=== PATIENT | female | born 1940 | race Caucasian/White ===

== ENCOUNTER 2018-02-24 11:48 | Emergency (ER) | payer MEDICARE, OTHER ==
[~2018-02-24] VITALS: Ht 160 cm; Wt 59.0 kg
[~2018-02-24 11:48] MED LIST: ACYC5TO15G; CHOL10002 PO; CONEST.625; DIVA500EC; DIVA500ER; DOC250 PO; DOCSEN; DOCSEN PO; DOCU100; DOCU100 PO; ESTNORT PO; ESTR1; ESTR2 PO; ESTRADIOL; ESTRTP; IMIP25; IMIP25 PO; IMIP50 PO; LAVAP17G PO; LAVAP4L PO; LEVSOD100; LEVSOD125; LEVSOD150; LEVSOD150 PO; LORA.5 PO; MAGCIT300 PO; MECL25; MECL25 PO; METO5A; METO5A PO; OMEP20ER; OMEP20ER PO; OXYB5; PROM25 PO; PSYL5.85P PO; RANI150; SELENIUM; SELENIUM 200 MG; SELENIUM PO; TOLT4; TOLT4 PO; ZINC15 PO; ZINC50TA2
[2018-02-24 12:41] LABS: Source, Urine Catheter
[2018-02-24 12:49] LABS: Alanine Aminotransfer (ALT/SGP 25 U/L (12-78); Albumin, Blood 3.5 g/dL (3.4-5.0); Alk Phos 77 U/L (50-136); Anion Gap 5 mmol/L (6-16); Aspartate Aminotrans (AST/SGOT 25 U/L (12-37); Bilirubin, Total 0.5 mg/dL (0.1-1.0); Blood Urea Nitrogen 11 mg/dL (8-24); CO2, Blood 29 mmol/L (21-32); Calcium, Blood 8.5 mg/dL (8.5-10.1); Chloride, Blood 109 mmol/L (98-108); Creatinine, Blood 0.73 mg/dL (0.40-1.00); Globulin, Blood 3.5 g/dL (2.2-4.0); Glomerular Filtration Rate >60 (60-); Glucose, Blood 85 mg/dL (70-99); Potassium, Blood 5.1 mmol/L (3.5-5.5); Sodium, Blood 143 mmol/L (136-145); Troponin I <0.015 ng/mL (0.000-0.040)
[2018-02-24 12:52] LABS: Ethanol (Alcohol), Blood, Med <3 mg/dL
[2018-02-24 12:58] LABS: Bilirubin, Urine Neg (Neg); Blood, Urine 1+ (Neg); Glucose Qualitative, Urine Neg (Neg); Ketones, Urine Neg (Neg); Leukocyte Esterase, Urine Neg (Neg); Nitrite, Urine Neg (Neg); Protein, Urine Neg (Neg); Urobilinogen, Urine NORM (Normal)
[2018-02-24] MEDS ORDERED: CLON.1 PO (13:02)
[2018-02-24 13:15] LABS: Appearance, Urine Clear (Clear); Color, Urine Yellow (P-Yellow)
[2018-02-24 13:17] LABS: U Amphetamine Screen Not Detected; U Barbituate Screen Not Detected; U Benzodiazapine Screen Not Detected; U Buprenorphine Screen Not Detected; U Cannabinoids Screen Not Detected; U Cocaine Screen Not Detected; U Methadone Screen Not Detected; U Methamphetamine Screen Not Detected; U Opiates Screen Not Detected; U Oxycodone Screen Not Detected; U Phencyclidine Screen Not Detected; U Propoxyphene Screen Not Detected
[2018-02-24 13:19] LABS: Bacteria Many /hpf; Squamous Epithelial Cells Few /hpf (Few); White Blood Cells, Urine Not Seen /hpf (0-5)
== END 2018-02-24 14:33 | disposition home or self-care (01) ==
LOC: ER 11:48
PROVIDERS: Emergency Medicine
DX: S16.1XXA Strain of muscle, fascia and tendon at neck level, initial encounter (principal); R55 Syncope and collapse; T42.4X5A Adverse effect of benzodiazepines, initial encounter; F31.9 Bipolar disorder, unspecified; E11.9 Type 2 diabetes mellitus without complications; I25.10 Atherosclerotic heart disease of native coronary artery without angina pectoris; E03.9 Hypothyroidism, unspecified; Z88.0 Allergy status to penicillin; Z88.2 Allergy status to sulfonamides; Z88.6 Allergy status to analgesic agent; Z88.1 Allergy status to other antibiotic agents; Z88.8 Allergy status to other drugs, medicaments and biological substances; Z79.899 Other long term (current) drug therapy; W18.30XA Fall on same level, unspecified, initial encounter
CPT/HCPCS: 70450; 72125; 80053; 81001; 84484; 93005; 93010; 96360; 99285-25; G0480; J7030

== ENCOUNTER 2018-04-07 12:24 | Observation (INO) | payer MEDICARE, OTHER ==
[~2018-04-07] VITALS: Ht 160 cm; Wt 59.0 kg
[~2018-04-07 12:24] MED LIST changes: +CLON.1 PO
[2018-04-07] MEDS ORDERED: B COMPLEX WITH1 EACH PO (12:48)
[2018-04-07] MEDS ORDERED: ACET325 PO (12:49)
[2018-04-07] MEDS ORDERED: BENZ100A PO (12:49)
[2018-04-07] MEDS ORDERED: SIMV10 PO (12:50)
[2018-04-07] MEDS ORDERED: NITR.4SL SL (12:51)
[2018-04-07] MEDS ORDERED: LAMO25 PO (12:55)
[2018-04-07] MEDS ORDERED: Acidophilus La100 GM (12:56)
[2018-04-07] MEDS ORDERED: ALLERGY RELIE15.8 ML (12:57)
[2018-04-07] MEDS ORDERED: Cranberry500 MG PO (12:58)
[2018-04-07] MEDS ORDERED: DIPH50 PO (12:58)
[2018-04-07 13:54] LABS: BASOPHILS ABSOLUTE AUTO 0.04 K/mm3 (0.00-0.23); BASOPHILS PERCENT AUTO 1 % (0-2); EOSINOPHILS ABSOLUTE AUTO 0.13 K/mm3 (0.00-0.68); EOSINOPHILS PERCENT AUTO 2 % (0-6); Hematocrit 37.6 % (33.0-51.0); Hemoglobin 12.4 g/dL (11.5-16.0); IMMATURE GRAN ABSOLUTE AUTO 0.02 K/mm3 (0.00-0.10); IMMATURE GRAN PERCENT AUTO 0 % (0-1); LYMPHOCYTES ABSOLUTE AUTO 1.74 K/mm3 (0.84-5.20); LYMPHOCYTES PERCENT AUTO 25 % (21-46); MONOCYTES ABSOLUTE AUTO 0.54 K/mm3 (0.16-1.47); MONOCYTES PERCENT AUTO 8 % (4-13); Mean Corpuscular HGB 29.9 pg (26.0-34.0); Mean Corpuscular Volume 91 fL (80-100); Mean Platelet Volume 9.5 fL (9.1-12.4); NEUTROPHILS ABSOLUTE AUTO 4.57 K/mm3 (1.96-9.15); NEUTROPHILS PERCENT AUTO 65 % (41-73); Platelet Count 481 K/mm3 (150-400); RDW Coefficient Variation 13.2 % (11.7-14.2); RDW Standard Deviation 44.1 fL (35.1-46.3); Red Blood Cell Count 4.15 M/mm3 (3.80-5.20); White Blood Cell Count 7.04 K/mm3 (4.00-11.30)
[2018-04-07 13:58] LABS: Source, Urine Clean Catch
[2018-04-07 14:04] LABS: Appearance, Urine Clear (Clear); Bilirubin, Urine Neg (Neg); Blood, Urine 1+ (Neg); Color, Urine Yellow (P-Yellow); Glucose Qualitative, Urine Neg (Neg); Ketones, Urine Neg (Neg); Leukocyte Esterase, Urine Neg (Neg); Nitrite, Urine Neg (Neg); Protein, Urine Neg (Neg); Urobilinogen, Urine NORM (Normal)
[2018-04-07 14:18] LABS: Acetaminophen, Random <2.0 ug/mL (10.0-30.0); Alanine Aminotransfer (ALT/SGP 24 U/L (12-78); Albumin, Blood 3.5 g/dL (3.4-5.0); Albumin/Globulin Ratio 0.9 (0.8-1.8); Alk Phos 98 U/L (50-136); Anion Gap 3 mmol/L (6-16); Aspartate Aminotrans (AST/SGOT 21 U/L (12-37); Bilirubin, Total 0.2 mg/dL (0.1-1.0); Blood Urea Nitrogen 10 mg/dL (8-24); CO2, Blood 30 mmol/L (21-32); Calcium, Blood 8.6 mg/dL (8.5-10.1); Chloride, Blood 106 mmol/L (98-108); Creatinine, Blood 0.71 mg/dL (0.40-1.00); Ethanol (Alcohol), Blood, Med <3 mg/dL; Globulin, Blood 3.8 g/dL (2.2-4.0); Glomerular Filtration Rate >60 (60-); Glucose, Blood 83 mg/dL (70-99); Potassium, Blood 4.9 mmol/L (3.5-5.5); Salicylate <1.7 mg/dL (2.8-20.0); Sodium, Blood 139 mmol/L (136-145); Total Protein, Blood 7.3 g/dL (6.4-8.2)
[2018-04-07 14:19] LABS: U Amphetamine Screen Not Detected; U Barbituate Screen Not Detected; U Benzodiazapine Screen Not Detected; U Buprenorphine Screen Not Detected; U Cannabinoids Screen Not Detected; U Cocaine Screen Not Detected; U Methadone Screen Not Detected; U Methamphetamine Screen Not Detected; U Opiates Screen Not Detected; U Oxycodone Screen Not Detected; U Phencyclidine Screen Not Detected; U Propoxyphene Screen Not Detected
[2018-04-07 14:20] LABS: Bacteria Few /hpf; Red Blood Cells, Urine 0-2 /hpf (0-2); Squamous Epithelial Cells Not Seen /hpf (Few); White Blood Cells, Urine 0-2 /hpf (0-5)
[2018-04-07 14:22] LABS: Thyroid Stimulating Hormone 0.828 uIU/mL (0.360-4.800)
[2018-04-08 23:13] LABS: BASOPHILS ABSOLUTE AUTO 0.05 K/mm3 (0.00-0.23); BASOPHILS PERCENT AUTO 1 % (0-2); EOSINOPHILS ABSOLUTE AUTO 0.23 K/mm3 (0.00-0.68); EOSINOPHILS PERCENT AUTO 3 % (0-6); Hematocrit 36.6 % (33.0-51.0); IMMATURE GRAN ABSOLUTE AUTO 0.02 K/mm3 (0.00-0.10); IMMATURE GRAN PERCENT AUTO 0 % (0-1); LYMPHOCYTES ABSOLUTE AUTO 2.16 K/mm3 (0.84-5.20); LYMPHOCYTES PERCENT AUTO 27 % (21-46); MONOCYTES ABSOLUTE AUTO 0.78 K/mm3 (0.16-1.47); MONOCYTES PERCENT AUTO 10 % (4-13); Mean Corpuscular HGB 29.6 pg (26.0-34.0); Mean Corpuscular HGB Conc 32.8 g/dL (31.5-36.5); Mean Corpuscular Volume 90 fL (80-100); NEUTROPHILS ABSOLUTE AUTO 4.76 K/mm3 (1.96-9.15); NEUTROPHILS PERCENT AUTO 59 % (41-73); Platelet Count 435 K/mm3 (150-400); RDW Coefficient Variation 13.2 % (11.7-14.2); RDW Standard Deviation 43.7 fL (35.1-46.3); Red Blood Cell Count 4.05 M/mm3 (3.80-5.20)
[2018-04-08 23:33] LABS: Alanine Aminotransfer (ALT/SGP 26 U/L (12-78); Albumin, Blood 3.4 g/dL (3.4-5.0); Albumin/Globulin Ratio 0.9 (0.8-1.8); Alk Phos 89 U/L (50-136); Anion Gap 6 mmol/L (6-16); Aspartate Aminotrans (AST/SGOT 28 U/L (12-37); Bilirubin, Total 0.3 mg/dL (0.1-1.0); Blood Urea Nitrogen 14 mg/dL (8-24); Bun/Creatinine Ratio 15.1 (12.0-20.0); CO2, Blood 28 mmol/L (21-32); Calcium, Blood 8.5 mg/dL (8.5-10.1); Chloride, Blood 104 mmol/L (98-108); Creatinine, Blood 0.93 mg/dL (0.40-1.00); Globulin, Blood 3.7 g/dL (2.2-4.0); Glomerular Filtration Rate >60 (60-); Glucose, Blood 119 mg/dL (70-99); Magnesium, Blood 2.1 mg/dL (1.6-2.4); Potassium, Blood 4.8 mmol/L (3.5-5.5); Sodium, Blood 138 mmol/L (136-145); Total Protein, Blood 7.1 g/dL (6.4-8.2); Troponin I <0.015 ng/mL (0.000-0.040)
[2018-04-09] MEDS ORDERED: BENZ100A PO (13:16)
== END 2018-04-09 14:07 | disposition home or self-care (01) ==
LOC: ER 12:24 → EOR 12:25
PROVIDERS: Emergency Medicine
DX: R45.851 Suicidal ideations (principal); F31.9 Bipolar disorder, unspecified; E11.9 Type 2 diabetes mellitus without complications; I25.10 Atherosclerotic heart disease of native coronary artery without angina pectoris; E03.9 Hypothyroidism, unspecified; M19.90 Unspecified osteoarthritis, unspecified site; Z88.0 Allergy status to penicillin; Z88.2 Allergy status to sulfonamides; Z88.1 Allergy status to other antibiotic agents; Z88.5 Allergy status to narcotic agent; Z88.8 Allergy status to other drugs, medicaments and biological substances; Z91.011 Allergy to milk products; Z79.899 Other long term (current) drug therapy; Z86.711 Personal history of pulmonary embolism; Z86.718 Personal history of other venous thrombosis and embolism
CPT/HCPCS: 36415; 80053; 81001; 83735; 84443; 84484; 85025; 93005; 93010; 96374; 99285-25; G0378; G0480; J2405; Q0163; Q3014

== ENCOUNTER 2018-10-13 09:19 | Observation (INO) | payer OTHER ==
[~2018-10-13] VITALS: Ht 160 cm; Wt 61.2 kg
[~2018-10-13 09:19] MED LIST changes: +ACET325 PO; +ALLERGY RELIE15.8 ML; +Acidophilus La100 GM PO; +B COMPLEX WITH1 EACH PO; +BENZ100A PO; +CRANBERRY500 M1 PO; +DIPH50 PO; +LAMO25 PO; +NITR.4SL SL; +SIMV10 PO
[2018-10-13 09:50] LABS: BASOPHILS ABSOLUTE AUTO 0.07 K/mm3 (0.00-0.23); BASOPHILS PERCENT AUTO 1 % (0-2); EOSINOPHILS ABSOLUTE AUTO 0.13 K/mm3 (0.00-0.68); EOSINOPHILS PERCENT AUTO 2 % (0-6); Hematocrit 41.7 % (33.0-51.0); Hemoglobin 13.4 g/dL (11.5-16.0); IMMATURE GRAN ABSOLUTE AUTO 0.01 K/mm3 (0.00-0.10); IMMATURE GRAN PERCENT AUTO 0 % (0-1); LYMPHOCYTES ABSOLUTE AUTO 1.69 K/mm3 (0.84-5.20); LYMPHOCYTES PERCENT AUTO 24 % (21-46); MONOCYTES ABSOLUTE AUTO 0.39 K/mm3 (0.16-1.47); MONOCYTES PERCENT AUTO 6 % (4-13); Mean Corpuscular HGB 29.3 pg (26.0-34.0); Mean Corpuscular HGB Conc 32.1 g/dL (31.5-36.5); Mean Corpuscular Volume 91 fL (80-100); Mean Platelet Volume 10.5 fL (9.1-12.4); NEUTROPHILS ABSOLUTE AUTO 4.74 K/mm3 (1.96-9.15); NEUTROPHILS PERCENT AUTO 68 % (41-73); Platelet Count 333 K/mm3 (150-400); RDW Coefficient Variation 14.1 % (11.7-14.2); RDW Standard Deviation 47.1 fL (35.1-46.3); Red Blood Cell Count 4.58 M/mm3 (3.80-5.20); White Blood Cell Count 7.03 K/mm3 (4.00-11.30)
[2018-10-13] MEDS ORDERED: MELA3 PO (10:09)
[2018-10-13 10:12] LABS: Acetaminophen, Random 24.2 ug/mL (10.0-30.0); Alanine Aminotransfer (ALT/SGP 34 U/L (12-78); Albumin, Blood 3.6 g/dL (3.4-5.0); Alk Phos 113 U/L (50-136); Anion Gap 8 mmol/L (6-16); Aspartate Aminotrans (AST/SGOT 18 U/L (12-37); Bilirubin, Total 0.5 mg/dL (0.1-1.0); Blood Urea Nitrogen 10 mg/dL (8-24); Bun/Creatinine Ratio 15.8 (12.0-20.0); CO2, Blood 26 mmol/L (21-32); Calcium, Blood 8.9 mg/dL (8.5-10.1); Chloride, Blood 107 mmol/L (98-108); Creatinine, Blood 0.63 mg/dL (0.40-1.00); Ethanol (Alcohol), Blood, Med <3 mg/dL; Globulin, Blood 3.6 g/dL (2.2-4.0); Glomerular Filtration Rate >60 (60-); Glucose, Blood 196 mg/dL (70-99); Potassium, Blood 4.3 mmol/L (3.5-5.5); Salicylate <1.7 mg/dL (2.8-20.0); Sodium, Blood 141 mmol/L (136-145); Total Protein, Blood 7.2 g/dL (6.4-8.2); Troponin I <0.015 ng/mL (0.000-0.040)
[2018-10-13 11:28] LABS: Source, Urine Catheter
[2018-10-13 11:42] LABS: U Amphetamine Screen Not Detected; U Barbituate Screen Not Detected; U Benzodiazapine Screen Not Detected; U Buprenorphine Screen Not Detected; U Cannabinoids Screen Not Detected; U Cocaine Screen Not Detected; U Methadone Screen Not Detected; U Methamphetamine Screen Not Detected; U Opiates Screen Not Detected; U Phencyclidine Screen Not Detected
[2018-10-13 11:43] LABS: U Oxycodone Screen Not Detected; U Propoxyphene Screen Not Detected
[2018-10-13 11:46] LABS: Appearance, Urine Clear (Clear); Bilirubin, Urine Neg (Neg); Blood, Urine 2+ (Neg); Color, Urine Yellow (P-Yellow); Glucose Qualitative, Urine 3+ (Neg); Ketones, Urine Neg (Neg); Leukocyte Esterase, Urine Neg (Neg); Nitrite, Urine Neg (Neg); Protein, Urine 2+ (Neg); Urobilinogen, Urine NORM (Normal)
[2018-10-13 11:49] LABS: Bacteria Not Seen /hpf; Squamous Epithelial Cells Few /hpf (Few); White Blood Cells, Urine Not Seen /hpf (0-5)
--- NOTE | 2018-10-13 18:48 | NUR ---
PT ADMITTED FROM ER. PT RISK FOR SUICIDE WITH HX OF MULTIPLE ATTEMPTS. SITTER AT BEDSIDE AND ROOM ADJUSTED FOR PT SAFETY. PT IS SETTLED IN ROOM. WILL PASS ON CARE TO ONCOMING NURSE.
[2018-10-14 05:31] LABS: BASOPHILS ABSOLUTE AUTO 0.07 K/mm3 (0.00-0.23); BASOPHILS PERCENT AUTO 1 % (0-2); EOSINOPHILS ABSOLUTE AUTO 0.24 K/mm3 (0.00-0.68); EOSINOPHILS PERCENT AUTO 3 % (0-6); Hemoglobin 11.9 g/dL (11.5-16.0); IMMATURE GRAN ABSOLUTE AUTO 0.02 K/mm3 (0.00-0.10); IMMATURE GRAN PERCENT AUTO 0 % (0-1); LYMPHOCYTES ABSOLUTE AUTO 1.64 K/mm3 (0.84-5.20); LYMPHOCYTES PERCENT AUTO 24 % (21-46); MONOCYTES ABSOLUTE AUTO 0.58 K/mm3 (0.16-1.47); MONOCYTES PERCENT AUTO 8 % (4-13); Mean Corpuscular HGB 29.9 pg (26.0-34.0); Mean Corpuscular HGB Conc 32.2 g/dL (31.5-36.5); Mean Corpuscular Volume 93 fL (80-100); NEUTROPHILS ABSOLUTE AUTO 4.43 K/mm3 (1.96-9.15); NEUTROPHILS PERCENT AUTO 64 % (41-73); Platelet Count 376 K/mm3 (150-400); RDW Coefficient Variation 13.9 % (11.7-14.2); RDW Standard Deviation 47.6 fL (35.1-46.3); Red Blood Cell Count 3.98 M/mm3 (3.80-5.20); White Blood Cell Count 6.98 K/mm3 (4.00-11.30)
[2018-10-14 05:55] LABS: Alanine Aminotransfer (ALT/SGP 36 U/L (12-78); Albumin, Blood 3.2 g/dL (3.4-5.0); Alk Phos 96 U/L (50-136); Anion Gap 7 mmol/L (6-16); Aspartate Aminotrans (AST/SGOT 22 U/L (12-37); Bilirubin, Total 0.6 mg/dL (0.1-1.0); Blood Urea Nitrogen 9 mg/dL (8-24); Bun/Creatinine Ratio 15.4 (12.0-20.0); CO2, Blood 26 mmol/L (21-32); Calcium, Blood 8.7 mg/dL (8.5-10.1); Chloride, Blood 108 mmol/L (98-108); Creatinine, Blood 0.59 mg/dL (0.40-1.00); Globulin, Blood 3.3 g/dL (2.2-4.0); Glomerular Filtration Rate >60 (60-); Glucose, Blood 90 mg/dL (70-99); Potassium, Blood 4.1 mmol/L (3.5-5.5); Sodium, Blood 141 mmol/L (136-145); Total Protein, Blood 6.5 g/dL (6.4-8.2)
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
--- NOTE | 2018-10-14 14:10 | NUR ---
CALLED TO SEE IF HE WILL BE SEEING PATIENT TODAY. HAS INFO.
[2018-10-14] MEDS ORDERED: Senna8.6 MG PO (14:20)
[2018-10-14] MEDS ORDERED: DONE10 PO (14:22)
[2018-10-14] MEDS ORDERED: CHOL10002 PO (14:23)
[2018-10-14] MEDS ORDERED: CALCIUM PO (14:28)
--- NOTE | 2018-10-14 14:51 | NUR ---
UPDATED ON MEDS --TAKES ARICEPT AT NIGHT. OK TO ORDER. ADVISED AWARE OF PATIENT.
--- NOTE | 2018-10-14 17:41 | NUR ---
PATIENT ALERT AND ORIENTED. AMBULATORY W/WALKER, GAIT BELT AND STANDBY ASSIST IN HALLWAY. STEADY GAIT. WAS IN TO SEE. IV PATENT. UNLABORED RESPIRATIONS. COOPERATIVE. PLEASANT. TELE ON AND PER TECH SR AT 69. BED IN LOW POSITION. SITTER 1:1. WILL CONTINUE TO MONITOR.
--- NOTE | 2018-10-14 20:56 | NUR ---
on 10/14/2018 pt gave student permission to assist in care for 10/16/2018.
--- NOTE | 2018-10-14 21:48 | NUR ---
1952 PT SITTING UP IN BED, DENIES ANY DISCOMFORT AT THIS TIME. PT REQUESTS THAT SHE ONLY TAKE THE 25 MG OF LAMICTAL INSTEAD OF THE 50 MG, SENT NOTE TO PHARMACY. NO OTHER APPARENT SIGNS OF DISTRESS. SITTER IN ROOM. CALL LIGHT IS IN REACH.
--- NOTE | 2018-10-15 01:34 | NUR ---
0000 PT LYING IN BED, AWAKE, NO APPARENT SIGNS OF DISTRESS. SITTER IN ROOM. CALL LIGHT IS IN REACH.
--- NOTE | 2018-10-15 01:35 | NUR ---
PT LYING IN BED, EYES CLOSED, APPEARS TO BE RESTING. BREATHING IS EVEN, UNLABORED. NO APPARENT SIGNS OF DISTRESS. SITTER IN ROOM. CALL LIGHT IS IN REACH.
--- NOTE | 2018-10-15 04:18 | NUR ---
PT LYING IN BED, ASSISTED PT TO BSC AND BACK TO BED AGAIN. NO APPARENT SIGNS OF DISTRESS. CALL LIGHT IS IN REACH. SITTER IN ROOM.
--- NOTE | 2018-10-15 04:19 | NUR ---
PT IS ALERT, ORIENTED TO SELF, SOMEWHAT TO PLACE AND SOMEWHAT TO HER CURRENT SITUATION, HOWEVER SHE OFTEN HAS CONFUSED CONVERSATION REGARDING WHERE SHE IS AND WHAT HER CURRENT SITUATION IS. SHE IS ON RA, A STAND BY ASSIST TO THE BSC. 18G IV IN HER RAC RUNNING NS AT 75. SHE IS HERE FOR SI WITH AN INTENTIONAL TYLENOL OD, THERE IS A SITTER PRESENT IN HER ROOM. THE PATIENT HAS BEEN VERY PLEASENT THOUGH SOMEWHAT DEPRESSED.
--- NOTE | 2018-10-15 05:58 | NUR ---
PT LYING IN BED, EYES CLOSED, APPEARS TO BE RESTING. WAKES EASILY TO VERBAL STIMULI. PT IS SOMEWHAT TEARFUL, HAS DEPRESSION. NO OTHER APPARENT SIGNS OF DISTRESS. SITTER IN ROOM, CALL LIGHT IS IN REACH. NO OTHER CHANGES THIS SHIFT.
--- NOTE | 2018-10-15 16:38 | NUR ---
Asked to speak with Megan by RN. Megan appears a little brighter today. She smiles easily and told me the same stories as yesterday. She reports "a little hope" for the future. She wanted me to pray for her and I happily complied. We have an easy rapport, and I will remain available.
--- NOTE | 2018-10-15 17:51 | NUR ---
PATIENT ALERT AND ORIENTED. AT TIMES DEPRESSED AND TALKS ABOUT GOING BACK WITH S.O. COOPERATIVE. DENIES WANTING TO HARM HERSELF. VIDEO CAMERA ON. STEADY GAIT WITH WALKER. AWARE NEEDS TO WAIT FOR STAFF TO HELP HER TO REST ROOM. POSSIBLE D'C TO LOCAL SNF WITH [facility] LOOKING INTO DIFFERENT AREAS THAT WILL TAKE HER AND HAVE A ROOM. UNLABORED RESPIRATIONS. WILL CONTINUE TO MONITOR.
--- NOTE | 2018-10-15 18:48 | NUR ---
HAS BEEN HAVING BLACK STOOLS TODAY FROM CHARCOAL.
--- NOTE | 2018-10-16 07:28 | NUR ---
cooperative, a+o, yvonne appropriately, saline locked, room air, walking rounds completed with day staff, camera
--- NOTE | 2018-10-16 18:00 | NUR ---
PT A/OX3, PLEASANT AND COOPERATIVE, UP IND IN HER ROOM THE PT WAS TEARFULL THIS AM, HOWEVER SHE REPORTED TO ME THAT SHE DID NOT WANT TO ATTEMPT TO TAKE HER OWN LIFE AGAIN, THE PT IS ON A MD HOLD AND IS MONITORED IN THE ROOM VIA CAMERA, THE PT DENIED ANY PAIN TODAY, PT WAS UP IN THE CHAIR FOR MEALS, AND UP TO THE BATHROOM SEVERAL TIMES, CALL LIGHT IN REACH, WILL CONTINUE TO MONITOR AND ASESS FOR CHANGES
--- NOTE | 2018-10-17 06:48 | NUR ---
SHIFT SUMMARY NO ACUTE CHANGES TO PRESENT THIS SHIFT. PT ABLE TO REST WELL THRU THE NIGHT. INDEPENDANT TO BSC. TOOK PO MEDICATIONS W/O DIFFICULTY. PT REPORTED THAT SHE IS WAITING TO GO TO [facility] WHEN DETAILS COMPLETE. PT ALSO STATED THAT SHE DID TRY TO KILL HERSELF WITH THE TYLENOL OVERDOSE, BUT WON'T DO THAT AGAIN. REQUESTED CREAM OF WHEAT FOR BREAKFAST D/T NOT HAVING ANY TEETH AND NOT USED TO EATING SANDWICHES. PT C/O WITH CARE. ABLE TO MAKE NEEDS KNOWN.
--- NOTE | 2018-10-17 17:52 | NUR ---
PT A/OX3, PLEASANT AND COOPERATIVE, PT CONTINUES TO REPORT FEELING SAD AND DEPRESSED, HOWEVER HAS REPORTS NO INTENTION OF HARMING HERSELF TODAY, THE PT WAS UP INTO THE CHAIR FOR MEALS AND UP WITH STAND BY ASSIST TO THE BATHROOM, PT APPEARS TO BE BREATHING EASILY ON RA, THE PT DENIED ANY PAIN T/O THE DAY, CALL LIGHT IN REACH, FAMILY AT THE BEDSIDE AT THIS TIME
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
--- NOTE | 2018-10-18 04:54 | NUR ---
*SHIFT SUMMARY* PATIENT IS ALERT AND ORIENTED. ON SI RISK. PATIENT STATES THAT SHE DOES NOT WISH TO HARM HERSELF AT THIS TIME. PATIENT IS INDEPENDENT IN ROOM, USES BSC AT NIGHT TIME. GAIT STEADY. ON ROOM AIR. PATIENT SLEPT OFF AND ON THROUGHOUT NIGHT. PATIENT STATES SHE HAS A LOT ON HER MIND AND CAN'T SLEEP. USES CALL LIGHT APPROPRIATELY. BED LOWERED AND LOCKED.
--- NOTE | 2018-10-18 15:52 | NUR ---
PATIENT AND I SAT DOWN THIS MORNING AT SHIFT CHANGE. I SPOKE WITH THE PATIENT AND SHE OPENED UP A LITTLE ABOUT EHR SITUATION. SHE STATES THAT SHE IS STILL HAVING SUICIDAL THOUGHTS AND THAT "IF [SHE] HAD THE OPPORTUNITY [SHE] WOULD DO IT AGAIN. SHE IS TEARFUL DURING THIS CONVERSATION. SHE IS STILL EXPRESSING FRUSTRATION THROUGHOUT THE DAY. SPOKE WITH DR. KAPOOR AND DR. ARCOS ABOUT PATIENTS CONDITION AND HER VERBALIZING THE FACT THAT SHE WOULD DO SO AGAIN. PATIENT FAMILY MEMBER IN THE ROOM WITH HER NOW. SPOKE WITH DR. KAPOOR WELL, PATIENT STATES IT FELT THOUGH SHE HAD SOMEONE STEPPING ON HER CHEST. PATIENT HAS A HISTORY OF ANXIETY AND HAS BEEN PRESCRIBED ONE TIME DOSE OF XANAX. SPOKE WITH PATIENTS DAUGHTER ABOUT ALLERGY TO BENZOS. PATIENTS DAUGHTER UNAWARE OF THE ALLERGIC REACTION. ASKED CAROLINA HINSON-BRENTON TO SPEAK WITH THE PATIENTS DAUGHTER ABOUT CHANGE IN POLST.
--- NOTE | 2018-10-18 16:18 | NUR ---
PATIENT WAS GIVEN A DOSE OF GI COCKTAIL. WE ARE AWAITING TO SEE IF THAT HELPS. CAROLINA TALKED WITH THE PATIENTS DAUGHTER. PATIENT'S DAUGHTER REQUESTS THAT VISITORS FOR PATIENT IN ROOM 351 BE LIMITED TO THE DAUGHTER, DAUGHTERS BROTHER, AND THE PATIENTS BROTHER. NAMES AND RELATIONSHIP PLACED IN CHART.
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
--- NOTE | 2018-10-19 05:57 | NUR ---
SHIFT SUMMARY A/O INDEPENDENT IN ROOM. NO C/O PAIN. SHE WAS ABLE TO SLEEP T/O NIGHT. CALL LIGHT IN REACH. WITHDRAWN AFFECT. SHE DIDN'T BRING UP ANYTHING ABOUT SI.
--- NOTE | 2018-10-19 17:48 | NUR ---
PT AOX3 DOES SEEM TO HAVE SOME CONFUSION AND WILL FIXATE ON WORRING ABOUT A MEDICATION OR IF THERE WILL BE FOOD AT HER HOME WHEN SHE DISCHARES AND EXAMPLE. PT INDEPENDENT IN ROOM AND WILL WALK AROUND WITH WALKER. PT LEFT ROOM TODAY WITH WALKER AND THIS CHECK PROCESSOR WENT WITH HER TO THE WINDOW AND BACK TO HER ROOM. PT IS JUST FEELIING BORED IN HER ROOM. WILL CONTINUE TO MONITOR.
--- NOTE | 2018-10-20 07:30 | NUR ---
10/20/18 0630 VITALS STABLE. SLEPT POORLY DUE TO NOISY FAJARDO MATES YELLING. IRRITABLE THIS AM ABOUT BEING WOKE UP TO TAKE AM MEDS.
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
--- NOTE | 2018-10-21 06:53 | NUR ---
10/21/18 0600 SLEPT WELL. VITALS STABLE. UNEVENTFUL NIGHT.
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
--- NOTE | 2018-10-21 19:14 | NUR ---
SHIFT SUMMARY PT INDEPENDENT IN HALLWAY WITH FWW. HAS DENIED ANY FEELINGS OF SI OR SELF HARM. DAUGHTER AT BEDSIDE MOST OF DAY. POSSIBLE DISCHARGE TO [facility] TOMORROW IF PT ABLE TO USE STAIRS PROPERLY BUT FROM REPORT FROM P.T. PT WAS VERY FEARFUL OF USING STAIRS AND DAUGHTER REPORTED SHE HAS A HISTORY OF TRIPPING ON STAIRS. P.T. RECOMMENDED ASSIST WITH USING STAIRS AND NOT BE INDEPENDENT. DAUGHTER NOW STATING [facility] MAY BE MOST APPROPRIATE CARE FOR HER.
--- NOTE | 2018-10-22 07:48 | NUR ---
10/22/18 0600 SLEEPING WELL. NO COMPLAINTS. UNEVENTFUL NIGHT.
[2018-10-22 14:13] LABS: Source, Urine Voided
[2018-10-22 14:16] LABS: Bilirubin, Urine Neg (Neg); Blood, Urine 1+ (Neg); Glucose Qualitative, Urine Neg (Neg); Ketones, Urine 1+ (Neg); Leukocyte Esterase, Urine 1+ (Neg); Nitrite, Urine Neg (Neg); Protein, Urine 1+ (Neg); Urobilinogen, Urine NORM (Normal)
--- NOTE | 2018-10-22 14:27 | NUR ---
On 10/22/18 this patient gave this nursing education consultant verbal consent to access information and assume care on 10/23/18 from [id number]
[2018-10-22 14:51] LABS: BASOPHILS ABSOLUTE AUTO 0.02 K/mm3 (0.00-0.23); BASOPHILS PERCENT AUTO 0 % (0-2); EOSINOPHILS ABSOLUTE AUTO 0.03 K/mm3 (0.00-0.68); EOSINOPHILS PERCENT AUTO 0 % (0-6); Hematocrit 40.2 % (33.0-51.0); IMMATURE GRAN ABSOLUTE AUTO 0.02 K/mm3 (0.00-0.10); IMMATURE GRAN PERCENT AUTO 0 % (0-1); LYMPHOCYTES ABSOLUTE AUTO 0.15 K/mm3 (0.84-5.20); LYMPHOCYTES PERCENT AUTO 2 % (21-46); MONOCYTES ABSOLUTE AUTO 0.18 K/mm3 (0.16-1.47); MONOCYTES PERCENT AUTO 2 % (4-13); Mean Corpuscular HGB 29.3 pg (26.0-34.0); Mean Corpuscular HGB Conc 32.3 g/dL (31.5-36.5); Mean Corpuscular Volume 91 fL (80-100); NEUTROPHILS ABSOLUTE AUTO 7.53 K/mm3 (1.96-9.15); NEUTROPHILS PERCENT AUTO 95 % (41-73); Platelet Count 369 K/mm3 (150-400); RDW Coefficient Variation 13.5 % (11.7-14.2); RDW Standard Deviation 44.6 fL (35.1-46.3); Red Blood Cell Count 4.44 M/mm3 (3.80-5.20); White Blood Cell Count 7.93 K/mm3 (4.00-11.30)
[2018-10-22 15:10] LABS: Anion Gap 8 mmol/L (6-16); Blood Urea Nitrogen 16 mg/dL (8-24); Bun/Creatinine Ratio 24.1 (12.0-20.0); CO2, Blood 24 mmol/L (21-32); Calcium, Blood 8.4 mg/dL (8.5-10.1); Chloride, Blood 106 mmol/L (98-108); Creatinine, Blood 0.66 mg/dL (0.40-1.00); Glomerular Filtration Rate >60 (60-); Glucose, Blood 103 mg/dL (70-99); Potassium, Blood 4.2 mmol/L (3.5-5.5); Sodium, Blood 138 mmol/L (136-145)
[2018-10-22 15:12] LABS: Appearance, Urine Clear (Clear); Color, Urine Yellow (P-Yellow)
[2018-10-22 15:14] LABS: Bacteria Few /hpf; Mucus Light (0-Heavy); Red Blood Cells, Urine 0-2 /hpf (0-2); Squamous Epithelial Cells Few /hpf (Few)
--- NOTE | 2018-10-22 19:10 | NUR ---
PT. SITTING IN BED IS VERY WITHDRAWN. PT. HAS HAD CHARCOAL-WATERY STOOLS T/O THE DAY. PT. STARTED ON IV FLUIDS R/T DEHYDRATION. UA WITH CULTURE SENT TO LAB. HAS REPORTED NAUSEA T/O THE DAY WHICH WAS MEDICATED WITH IV ZOFRAN.
--- NOTE | 2018-10-23 05:03 | NUR ---
VSS, AFEBRILE, A/O, OOB FOR FREQ STOOLS, VERY PARTICULAR ABOUT HER ROOM, WANTS EVERYTHING DONE A CERTAIN WAY TO PLEASE HER, TAKES MEDS WHOLE W/WATER, WAITING FOR PLACEMENT, NO SUGGESTION OF S.I. DURING THIS SHIFT. CAMERA CONTINUES TO MONITOR CONSTANTLY.
--- NOTE | 2018-10-23 17:42 | NUR ---
PT. UP IN CHAIR, DIARRHEA HAS SLOWED DOWN AND NOW IS A LIGHT GREEN WITH FOOD PARTICLES AND MUCUS. NO OTHER NOTEABLE CHANGES THIS SHIFT. PLACEMENET IS STILL AN ISSUE FOR THIS PT.
--- NOTE | 2018-10-24 05:13 | NUR ---
VSS, AFEBRILE, A/O, SBA TO BSC AT TIMES, INCREASING INDEPENDENCE IN THE ROOM, SLEPT WELL OVERNOC, NO COMPLAINTS.
[2018-10-24 08:30] LABS: BASOPHILS ABSOLUTE AUTO 0.01 K/mm3 (0.00-0.23); BASOPHILS PERCENT AUTO 0 % (0-2); EOSINOPHILS ABSOLUTE AUTO 0.13 K/mm3 (0.00-0.68); EOSINOPHILS PERCENT AUTO 2 % (0-6); Hematocrit 34.2 % (33.0-51.0); IMMATURE GRAN ABSOLUTE AUTO 0.02 K/mm3 (0.00-0.10); IMMATURE GRAN PERCENT AUTO 0 % (0-1); LYMPHOCYTES ABSOLUTE AUTO 1.11 K/mm3 (0.84-5.20); LYMPHOCYTES PERCENT AUTO 16 % (21-46); MONOCYTES ABSOLUTE AUTO 0.64 K/mm3 (0.16-1.47); MONOCYTES PERCENT AUTO 9 % (4-13); Mean Corpuscular HGB Conc 32.2 g/dL (31.5-36.5); Mean Corpuscular Volume 93 fL (80-100); Mean Platelet Volume 10.4 fL (9.1-12.4); NEUTROPHILS ABSOLUTE AUTO 5.24 K/mm3 (1.96-9.15); NEUTROPHILS PERCENT AUTO 73 % (41-73); Platelet Count 287 K/mm3 (150-400); RDW Coefficient Variation 13.7 % (11.7-14.2); RDW Standard Deviation 46.4 fL (35.1-46.3); Red Blood Cell Count 3.67 M/mm3 (3.80-5.20); White Blood Cell Count 7.15 K/mm3 (4.00-11.30)
[2018-10-24 08:58] LABS: Albumin, Blood 2.6 g/dL (3.4-5.0); Anion Gap 9 mmol/L (6-16); Blood Urea Nitrogen 9 mg/dL (8-24); Bun/Creatinine Ratio 14.9 (12.0-20.0); CO2, Blood 22 mmol/L (21-32); Calcium, Blood 8.1 mg/dL (8.5-10.1); Chloride, Blood 112 mmol/L (98-108); Glomerular Filtration Rate >60 (60-); Glucose, Blood 84 mg/dL (70-99); Phosphorus, Blood 2.2 mg/dL (2.5-4.9); Potassium, Blood 3.8 mmol/L (3.5-5.5); Sodium, Blood 143 mmol/L (136-145)
[2018-10-24 09:16] LABS: Stool Occult Blood Guaiac 1 Neg (Neg)
--- NOTE | 2018-10-24 18:42 | NUR ---
PT. NEGATIVE FOR BLOOD IN STOOL AND C-DIFF. NO BM'S NOTED TODAY. DIET CHANGED TO MECH SOFT WITH GROUND MEAT. PT. INTERVIEWED BY TOMI AND CHOLO GAMING TODAY. PT. NOT ALLOWED TO HAVE PHONE SHE CALLS HER BOYFRIEND WHO'S SHE'S NOT SUPPOSED TO HAVE CONTACT WITH.
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
--- NOTE | 2018-10-25 17:56 | NUR ---
SHIFT SUMMARY THE PATIENT PRESENTED THIS SHIFT WITH VITALS WNL, A&O X4 AND WITH CLEAR LUNGS. THE PATIENT APPEARS TO HAVE A INGUINAL HERNIA ON HER RIGHT SIDE THAT WAS BROUGHT TO DR. TREVIÑO. THE DOCTOR ORDERED A CONSULT WITH DR. TREJO AND HIS OFFICE WAS CALLED WITH NOTIFICATION. THE PATIENT'S DAUGHTER WAS HERE THIS SHIFT TO VISIT THE PATIENT AND STATED THAT THE PATIENT WOULD HAVE SOME WHERE TO MOVE ON SUNDAY. THE PATIENT IS EATING DINNER AT THIS TIME, WILL CONTINUE TO MONITOR.
--- NOTE | 2018-10-26 04:42 | NUR ---
VSS, AFEBRILE, A/O, INDEPENDENT TO THE BSC, PT EXPRESSED AMBIVILENCE REGARDING HER PENDING DISCHARGE TO A RESIDENT FACILITY. SHE WAS ALMOST TEARFUL WHEN SHE STATED THAT SHE DIDN'T KNOW HOW SHE FELT ABOUT THE IMPENDING CHANGES. HER FEELINGS WERE DISCUSSED BRIEFLY BEFORE SHE CHANGED THE SUBJECT. PT SLEPT WELL OVERNOC. NO COMPLAINTS.
--- NOTE | 2018-10-26 15:00 | NUR ---
ASSUMED CARE FROM JING BARKLEY. NO ACUTE CHANGES NOTED. NO CURRENT COMPLAINTS OF PAIN OR DISCOMFORT NOTED. WILL CONTINUE TO MONITOR FOR CHANGES.
--- NOTE | 2018-10-26 18:23 | NUR ---
NO ACUTE CHANGES NOTED. SOME DISCOMFORT NOTED IN HER RIGHT GROIN AREA DURING DINNER, SHE THINKS IT FROM SITTING UP IN BED. NO OTHER COMPLAINTS NOTED AT THIS TIME. WILL CONTINUE TO MONITOR FOR CHANGES.
--- NOTE | 2018-10-27 05:04 | NUR ---
SHIFT SUMMARY PT SLEPT WELL DURING THE NIGHT, NO ACUTE EVENTS NOTED. WILL CONTINUE TO MONITOR.
--- NOTE | 2018-10-27 15:42 | NUR ---
PER DAUGHTER, [facility] ROOM MAY NOT BE AVAILABLE UNITL SUNDAY.
--- NOTE | 2018-10-27 16:30 | NUR ---
DISCUSSED NEED FOR CAMERA MONITORING WITH DR SANTOS, NEW ORDERS TO STOP CAMERA MONITORING. DRAFTER APPRENTICE, NURSING ORGANIZATIONAL EFFECTIVENESS CONSULTANT AND SITTER/MONITOR NOTIFIED TO SHUT CAMERA OFF. WILL CONTINUE TO MONITOR.
--- NOTE | 2018-10-27 18:46 | NUR ---
SHIFT SUMMARY PT A&Ox3 CALM AND COOPERATIVE WITH CARE. IND TO CHAIR AND BSC. UP IN CHAIR FOR MEALS. PT DENIES PAIN AND SOB. PT REPORTS NAUSEA, MEDICATED WITH SCHEDULED REGALN. PT RECEIVING PO ANTIBIOTICS. PT REPORTING BLOATING THIS EVENING, STATES THIS HAPPENS AT HOME AND SHE DRINKS PRUNE JUICE TO HAVE BM, REFUSES THIS EVENING STATES SHE WANTS TO SLEEPING TONIGHT AND TAKE IN THE AM. VSS. NO OTHER ACUTE CHANGES NOTED DURING SHIFT. REPORT GIVEN TO ONCOMING RN.
--- NOTE | 2018-10-28 04:59 | NUR ---
SHIFT SUMMARY PT SLEPT FAIR TONIGHT. HAD FEVER OF 100.9 AND MEDICATED WITH TYLENOL, TEMP DOWN TO 100.2. PT ALSO HAD C/O LEFT BREAST/NIPPLE PAIN, MEDICATED WITH TYLENOL FOR THAT WELL. HAS BEEN SLEEPING SINCE. NO ACUTE EVENTS NOTED, WILL CONTINUE TO MONITOR.
--- NOTE | 2018-10-28 15:20 | NUR ---
PT REPORTING DIZZINESS WHILE STANDING, BP CHECKED DR GUEVARA NOTIFIED OF DIZZINESS, VS AND DIARRHEA. NO NEW ORDERS, ENCOURAGE FLUIDS. PT EDUCATED ON NEED FOR FLUIDS AND ON NEED TO CALL FOR ASSISTANCE WHILE DIZZY. WILL CONTINUE TO MONITOR.
--- NOTE | 2018-10-28 19:54 | NUR ---
SHIFT SUMMARY PT A&Ox3. PT CALM AND COOPERATIVE WITH CARE. ANXIOUS AT TIME RELATING TO DISCHARGE PLANS. PT DENIES SI. PT IND TO BSC AND CHAIR, SBA WALKING T/O FAJARDO. PT REPORTS TENDERNESS IN ABD, DENIES "PAIN". NAUSEA NOTED, MEDICATED PER SCHEDULED REGLAN. PT REQUESTING PRUNE JUICE THIS AM, HAD TWO WITH 1ST SOFT/FORMED BM, PT HAD SEVERAL EPISODES OF LOOSE/LIQUIDS STOOLS DURING SHIFT. NOTIFIED DR GUEVARA, NO NEW ORDERS. PT REPORTING DIZZINESS THIS AFTERNOON, VSS, NOTIFIED DR GUEVARA, CONTINUE TO ENCOURAGE PO FLUIDS. PT BECAME UPSET WHEN THIS RN ENCOURAGED PO FLUIDS, STATING SHE DOES NOT WANT TO "FILL UP" ON WATER, CONTINUED TO ENCOURAGED PT TO DRINK FLUIDS. VSS. NO OTHER ACUTE CHANGES NOTED DURING SHIFT. REPORT GIVEN TO ONCOMING RN.
--- NOTE | 2018-10-29 07:56 | NUR ---
SHIFT SUMMARY A/O, ABLE TO MAKE NEEDS KNOWN. COOPERATIVE WITH CARE. NO C/O PAIN/DISCOMFORT. STATES WANTED DOOR TO REMAIN SHUT. DISCUSSED WITH LEARNING PROGRAM MANAGER; STATED WOULD BE OK WITH FREQUENT CHECKS. APPEARED TO REST MUCH OF SHIFT. UP INDEPENDENTLY T/O NIGHT TO RESTROOM. NO STOOL LAST NIGHT. NO DIZZINESS REPORTED. SLIGHT TEMP THIS AM; ALL OTHER VSS. NO ACUTE CHANGES NOTED OVERNIGHT. BED IN LOWEST POSITION. CALL LIGHT AND BELONGINGS WITHIN REACH. CONTINUED TO MONITOR THROUGHOUT SHIFT. REPORT GIVEN TO ONCOMING RN.
[2018-10-29] MEDS ORDERED: MIRT15 PO (12:21)
[2018-10-29] MEDS ORDERED: OMEPRAZOLE MAGN20 MG PO (12:22)
[2018-10-29] MEDS ORDERED: LAMO25 PO (15:27)
== END 2018-10-29 16:12 ==
LOC: ER 09:19 → MEDS 09:20 → ERHOLD 09:20 → MEDS 09:21 → ERHOLD 12:51 → ER 12:51 → MEDS 18:22 → ERHOLD 18:35 → MEDS 10-29 16:12
PROVIDERS: Emergency Medicine; ADMIT Internal Medicine
DX: T39.1X2A Poisoning by 4-Aminophenol derivatives, intentional self-harm, initial encounter (principal); F31.9 Bipolar disorder, unspecified; G30.9 Alzheimer's disease, unspecified; F02.81 Dementia in other diseases classified elsewhere, unspecified severity, with behavioral disturbance; R26.9 Unspecified abnormalities of gait and mobility; E03.9 Hypothyroidism, unspecified; K40.90 Unilateral inguinal hernia, without obstruction or gangrene, not specified as recurrent; E11.9 Type 2 diabetes mellitus without complications; N39.0 Urinary tract infection, site not specified; R19.7 Diarrhea, unspecified; F41.0 Panic disorder [episodic paroxysmal anxiety]; M19.90 Unspecified osteoarthritis, unspecified site; I25.10 Atherosclerotic heart disease of native coronary artery without angina pectoris; Z86.711 Personal history of pulmonary embolism; Z86.718 Personal history of other venous thrombosis and embolism; Z88.6 Allergy status to analgesic agent; Z88.2 Allergy status to sulfonamides; Z88.1 Allergy status to other antibiotic agents; Z88.8 Allergy status to other drugs, medicaments and biological substances; Z79.899 Other long term (current) drug therapy
CPT/HCPCS: 36415; 71046; 80048; 80053; 80069; 81001; 82272; 84443; 84484; 85025; 87077; 87086; 87186; 87493; 93005; 93010; 96361; 96365; 96372; 96375; 96376; 97116; 97161; 97530; 99285-25; G0378; G0480; J0696; J1650; J2405; J7030; Q3014

== ENCOUNTER 2018-11-25 08:11 | Emergency (ER) | payer OTHER ==
[~2018-11-25] VITALS: Ht 162.6 cm; Wt 49.9 kg
[~2018-11-25 08:11] MED LIST changes: +CALCIUM PO; +DONE10 PO; +MELA3 PO; +MIRT15 PO; +OMEPRAZOLE MAGN20 MG PO; +Senna8.6 MG PO
== END 2018-11-25 11:05 | disposition home or self-care (01) ==
LOC: ER 08:11
DX: F41.9 Anxiety disorder, unspecified (principal); Z88.0 Allergy status to penicillin; Z88.2 Allergy status to sulfonamides; Z88.1 Allergy status to other antibiotic agents; Z79.899 Other long term (current) drug therapy; F31.9 Bipolar disorder, unspecified; E11.9 Type 2 diabetes mellitus without complications; E03.9 Hypothyroidism, unspecified
CPT/HCPCS: 99283

== ENCOUNTER 2019-01-31 15:46 | Emergency (ER) | payer OTHER ==
[~2019-01-31] VITALS: Ht 160 cm; Wt 41.3 kg
[2019-01-31] MEDS ORDERED: Amitiza8 MCG PO (16:06)
[2019-01-31] MEDS ORDERED: FLUO10 PO (16:07)
[2019-01-31] MEDS ORDERED: QUET25 PO (16:09)
[2019-01-31] MEDS ORDERED: Kristalose20 GM PO (17:40)
== END 2019-01-31 19:15 | disposition home or self-care (01) ==
LOC: ER 15:46
DX: K59.09 Other constipation (principal); R05 Cough; E11.9 Type 2 diabetes mellitus without complications; F31.9 Bipolar disorder, unspecified; E03.9 Hypothyroidism, unspecified; Z79.899 Other long term (current) drug therapy
CPT/HCPCS: 74022; 99283-25

== ENCOUNTER → 2019-09-22 | Outpatient (CLI) | payer OTHER ==
[~2019-09-22] MED LIST changes: +Amitiza8 MCG PO; +FLUO10 PO; +Kristalose20 GM PO; +QUET25 PO
== END ==
LOC: LAB SHORT 10:42 → LAB 10:42
DX: Z51.81 Encounter for therapeutic drug level monitoring (principal); N39.0 Urinary tract infection, site not specified; Z79.899 Other long term (current) drug therapy
CPT/HCPCS: 87086

== ENCOUNTER 2020-01-22 10:59 | Observation (INO) | payer OTHER ==
[~2020-01-22] VITALS: Ht 172.7 cm; Wt 57.6 kg
[~2020-01-22 10:59] MED LIST changes: -DOCU100 PO; +LAMOTRIGINE25 M1 PO; +LEVSOD75 PO; -MELA3 PO; -MIRT15 PO; +Metoclopramide H5 MG PO; +Mirtazapine7.5 MG PO; -QUET25 PO; -Senna8.6 MG PO; +Seroquel Xr50 MG PO
[2020-01-22 12:14] LABS: Source, Urine Voided
[2020-01-22 12:16] LABS: BASOPHILS ABSOLUTE AUTO 0.06 K/mm3 (0.00-0.23); BASOPHILS PERCENT AUTO 1 % (0-2); EOSINOPHILS ABSOLUTE AUTO 0.04 K/mm3 (0.00-0.68); EOSINOPHILS PERCENT AUTO 1 % (0-6); Hematocrit 40.4 % (33.0-51.0); Hemoglobin 13.2 g/dL (11.5-16.0); IMMATURE GRAN ABSOLUTE AUTO 0.02 K/mm3 (0.00-0.10); IMMATURE GRAN PERCENT AUTO 0 % (0-1); LYMPHOCYTES ABSOLUTE AUTO 1.76 K/mm3 (0.84-5.20); LYMPHOCYTES PERCENT AUTO 21 % (21-46); MONOCYTES ABSOLUTE AUTO 0.56 K/mm3 (0.16-1.47); MONOCYTES PERCENT AUTO 7 % (4-13); Mean Corpuscular HGB 30.4 pg (26.0-34.0); Mean Corpuscular HGB Conc 32.7 g/dL (31.5-36.5); Mean Corpuscular Volume 93 fL (80-100); Mean Platelet Volume 9.9 fL (9.1-12.4); NEUTROPHILS ABSOLUTE AUTO 5.85 K/mm3 (1.96-9.15); NEUTROPHILS PERCENT AUTO 71 % (41-73); Platelet Count 358 K/mm3 (150-400); RDW Coefficient Variation 13.6 % (11.7-14.2); RDW Standard Deviation 45.9 fL (35.1-46.3); Red Blood Cell Count 4.34 M/mm3 (3.80-5.20); White Blood Cell Count 8.29 K/mm3 (4.00-11.30)
[2020-01-22 12:19] LABS: Bilirubin, Urine Neg (Neg); Blood, Urine 1+ (Neg); Glucose Qualitative, Urine Neg (Neg); Ketones, Urine Neg (Neg); Leukocyte Esterase, Urine Neg (Neg); Nitrite, Urine Neg (Neg); Protein, Urine Neg (Neg); Specific Gravity, Urine 1.005 (1.003-1.022); Urobilinogen, Urine NORM (Normal)
[2020-01-22 12:37] LABS: Appearance, Urine Clear (Clear); Bacteria Not Seen /hpf; Color, Urine Yellow (P-Yellow); Red Blood Cells, Urine 0-2 /hpf (0-2); Squamous Epithelial Cells Rare /hpf (Few); White Blood Cells, Urine Not Seen /hpf (0-5)
[2020-01-22 12:40] LABS: Ethanol (Alcohol), Blood, Med <3 mg/dL; Salicylate <1.7 mg/dL (2.8-20.0)
[2020-01-22 12:43] LABS: Acetaminophen, Random <2.0 ug/mL (10.0-30.0); Alanine Aminotransfer (ALT/SGP 33 U/L (12-78); Albumin, Blood 3.9 g/dL (3.4-5.0); Alk Phos 97 U/L (50-136); Anion Gap 4 mmol/L (6-16); Aspartate Aminotrans (AST/SGOT 19 U/L (12-37); Bilirubin, Total 0.3 mg/dL (0.1-1.0); Blood Urea Nitrogen 13 mg/dL (8-24); Bun/Creatinine Ratio 19.5 (12.0-20.0); CO2, Blood 27 mmol/L (21-32); Calcium, Blood 8.7 mg/dL (8.5-10.1); Chloride, Blood 108 mmol/L (98-108); Creatinine, Blood 0.67 mg/dL (0.40-1.00); Glomerular Filtration Rate >60 (60-); Glucose, Blood 95 mg/dL (70-99); Potassium, Blood 4.4 mmol/L (3.5-5.5); Sodium, Blood 139 mmol/L (136-145); Total Protein, Blood 7.9 g/dL (6.4-8.2)
[2020-01-22 12:55] LABS: U Amphetamine Screen Not Detected; U Barbituate Screen Not Detected; U Benzodiazapine Screen Not Detected; U Buprenorphine Screen Not Detected; U Cannabinoids Screen Not Detected; U Cocaine Screen Not Detected; U Methadone Screen Not Detected; U Methamphetamine Screen Not Detected; U Opiates Screen Not Detected; U Oxycodone Screen Not Detected; U Phencyclidine Screen Not Detected; U Propoxyphene Screen Not Detected
[2020-01-22] MEDS ORDERED: LORA.5 PO (15:15)
[2020-01-22] MEDS ORDERED: VITAMIN D325 MC3 PO (15:17)
[2020-01-22] MEDS ORDERED: MELATONIN5 M1 PO (16:53)
[2020-01-22] MEDS ORDERED: DOCU100 PO (16:53)
[2020-01-22] MEDS ORDERED: Senna8.6 MG PO (16:53)
== END 2020-01-23 14:28 | disposition home or self-care (01) ==
LOC: ER 10:59 → EOR 11:00
PROVIDERS: ADMIT Emergency Medicine
DX: F32.9 Major depressive disorder, single episode, unspecified (principal); E11.9 Type 2 diabetes mellitus without complications; G30.9 Alzheimer's disease, unspecified; F02.80 Dementia in other diseases classified elsewhere, unspecified severity, without behavioral disturbance, psychotic disturbance, mood disturbance, and anxiety; E03.9 Hypothyroidism, unspecified; I25.10 Atherosclerotic heart disease of native coronary artery without angina pectoris; Z88.0 Allergy status to penicillin; Z88.2 Allergy status to sulfonamides; Z88.1 Allergy status to other antibiotic agents; Z88.8 Allergy status to other drugs, medicaments and biological substances; Z88.5 Allergy status to narcotic agent; Z91.011 Allergy to milk products; Z79.899 Other long term (current) drug therapy
CPT/HCPCS: 80053; 81001; 81025; 85025; 99285; A9270; G0378; G0480; Q3014

== ENCOUNTER 2020-04-20 13:28 | Observation (INO) | payer OTHER ==
[~2020-04-20] VITALS: Ht 157.5 cm; Wt 48.0 kg
[~2020-04-20 13:28] MED LIST changes: +DOCU100 PO; +MELATONIN5 M1 PO; +Senna8.6 MG PO; +VITAMIN D325 MC3 PO
[2020-04-20] MEDS ORDERED: Lamotrigine25 MG PO (13:52)
[2020-04-20] MEDS ORDERED: Mirtazapine15 M1 PO (13:52)
[2020-04-20] MEDS ORDERED: Buspirone HCl5 MG PO (13:52)
[2020-04-20 15:11] LABS: Alanine Aminotransfer (ALT/SGP 30 U/L (12-78); Albumin, Blood 3.7 g/dL (3.4-5.0); Albumin/Globulin Ratio 0.9 (0.8-1.8); Alk Phos 118 U/L (50-136); Anion Gap 13 mmol/L (6-16); Aspartate Aminotrans (AST/SGOT 36 U/L (12-37); Bilirubin, Total 0.8 mg/dL (0.1-1.0); Blood Urea Nitrogen 17 mg/dL (8-24); Bun/Creatinine Ratio 22.3 (12.0-20.0); CO2, Blood 14 mmol/L (21-32); Chloride, Blood 108 mmol/L (98-108); Creatinine, Blood 0.76 mg/dL (0.40-1.00); Ethanol (Alcohol), Blood, Med <3 mg/dL; Globulin, Blood 4.3 g/dL (2.2-4.0); Glomerular Filtration Rate >60 (60-); Glucose, Blood 69 mg/dL (70-99); Potassium, Blood 4.7 mmol/L (3.5-5.5); Salicylate 2.4 mg/dL (2.8-20.0); Sodium, Blood 135 mmol/L (136-145)
[2020-04-20 15:56] LABS: Acetaminophen, Random <2.0 ug/mL (10.0-30.0)
[2020-04-20 19:37] LABS: BASOPHILS ABSOLUTE AUTO 0.07 K/mm3 (0.00-0.23); BASOPHILS PERCENT AUTO 1 % (0-2); EOSINOPHILS ABSOLUTE AUTO 0.14 K/mm3 (0.00-0.68); EOSINOPHILS PERCENT AUTO 2 % (0-6); Hematocrit 50.5 % (33.0-51.0); Hemoglobin 16.7 g/dL (11.5-16.0); IMMATURE GRAN ABSOLUTE AUTO 0.03 K/mm3 (0.00-0.10); IMMATURE GRAN PERCENT AUTO 0 % (0-1); LYMPHOCYTES ABSOLUTE AUTO 1.77 K/mm3 (0.84-5.20); LYMPHOCYTES PERCENT AUTO 22 % (21-46); MONOCYTES ABSOLUTE AUTO 0.73 K/mm3 (0.16-1.47); MONOCYTES PERCENT AUTO 9 % (4-13); Mean Corpuscular HGB 29.8 pg (26.0-34.0); Mean Corpuscular HGB Conc 33.1 g/dL (31.5-36.5); Mean Corpuscular Volume 90 fL (80-100); NEUTROPHILS ABSOLUTE AUTO 5.28 K/mm3 (1.96-9.15); NEUTROPHILS PERCENT AUTO 66 % (41-73); RDW Standard Deviation 42.5 fL (35.1-46.3); Red Blood Cell Count 5.61 M/mm3 (3.80-5.20); White Blood Cell Count 8.02 K/mm3 (4.00-11.30)
[2020-04-20 23:02] LABS: Free Thyroxine 1.11 ng/dL (0.70-1.60); Thyroid Stimulating Hormone 0.391 uIU/mL (0.360-4.800)
--- NOTE | 2020-04-21 03:20 | NUR ---
PRIMARY RN BLADDER SCANNED PT - READING 819ML. PT REFUSING TO GO TO BATHROOM IN PT ROOM, REFUSING BEDSIDE COMMODE, AND REFUSING TO URINATE IN BRIEF. RN OFFERED URINARY CATHETER, AND SHE REFUSED WELL. PT STATES SHE "JUST WANTS TO BE LEFT ALONE"
--- NOTE | 2020-04-21 05:12 | NUR ---
PT CAME FROM ED AROUND 2300 04/20, PT REFUSING ALL CARE. WILL NOT GO TO BATHROOM, WILL NOT EAT OR DRINK ANYTHING. WONT LET LAB DO LAB DRAWS. PRIMARY RN PROVIDED PT WITH EDUCATION AND EMOTIONAL SUPPORT, BUT PT STATES SHE WANTS TO BE LEFT ALONE. UNCOOPERATIVE AND TEARFUL. VSS ROOM AIR VERY WEAK - BUT CAN WALK WITH SB NO SKIN ISSUES NO VOIDS, NO BM - HAVE ORDER FROM MD TO STRAIGHT CATH IF PT WILL COMPLY NO C/O PAIN CALL LIGHT WITHIN REACH, BED IN LOWEST POSITION. WILL CONTINUE TO MONITOR.
[2020-04-21 08:41] LABS: BASOPHILS ABSOLUTE AUTO 0.03 K/mm3 (0.00-0.23); BASOPHILS PERCENT AUTO 0 % (0-2); EOSINOPHILS ABSOLUTE AUTO 0.15 K/mm3 (0.00-0.68); EOSINOPHILS PERCENT AUTO 2 % (0-6); Hematocrit 42.6 % (33.0-51.0); Hemoglobin 14.3 g/dL (11.5-16.0); IMMATURE GRAN ABSOLUTE AUTO 0.01 K/mm3 (0.00-0.10); IMMATURE GRAN PERCENT AUTO 0 % (0-1); LYMPHOCYTES ABSOLUTE AUTO 1.03 K/mm3 (0.84-5.20); LYMPHOCYTES PERCENT AUTO 14 % (21-46); MONOCYTES ABSOLUTE AUTO 0.67 K/mm3 (0.16-1.47); MONOCYTES PERCENT AUTO 9 % (4-13); Mean Corpuscular HGB 29.6 pg (26.0-34.0); Mean Corpuscular HGB Conc 33.6 g/dL (31.5-36.5); Mean Corpuscular Volume 88 fL (80-100); Mean Platelet Volume 10.1 fL (9.1-12.4); NEUTROPHILS ABSOLUTE AUTO 5.45 K/mm3 (1.96-9.15); NEUTROPHILS PERCENT AUTO 74 % (41-73); Platelet Count 362 K/mm3 (150-400); RDW Coefficient Variation 12.9 % (11.7-14.2); Red Blood Cell Count 4.83 M/mm3 (3.80-5.20); White Blood Cell Count 7.34 K/mm3 (4.00-11.30)
[2020-04-21 08:58] LABS: Alanine Aminotransfer (ALT/SGP 25 U/L (12-78); Albumin, Blood 3.4 g/dL (3.4-5.0); Albumin/Globulin Ratio 0.9 (0.8-1.8); Alk Phos 106 U/L (50-136); Anion Gap 8 mmol/L (6-16); Aspartate Aminotrans (AST/SGOT 23 U/L (12-37); Bilirubin, Total 0.7 mg/dL (0.1-1.0); Blood Urea Nitrogen 13 mg/dL (8-24); Bun/Creatinine Ratio 22.8 (12.0-20.0); CO2, Blood 23 mmol/L (21-32); Calcium, Blood 9.1 mg/dL (8.5-10.1); Chloride, Blood 108 mmol/L (98-108); Creatinine, Blood 0.57 mg/dL (0.40-1.00); Globulin, Blood 3.7 g/dL (2.2-4.0); Glomerular Filtration Rate >60 (60-); Glucose, Blood 81 mg/dL (70-99); Sodium, Blood 139 mmol/L (136-145); Total Protein, Blood 7.1 g/dL (6.4-8.2)
--- NOTE | 2020-04-21 09:07 | NUR ---
ASSUME CARE: PT ALERT, LIMITED CONVERSATION WITH PT MOSTLY CLOSE ENDED QUESTIONS. PT WAS ASKED ABOUT HOW SHE FEELS TODAY PT STATED "I FEEL DEPRESSED". REFUSED HER MEDICATIONS THIS AM EVEN WITH EXPLANATION ON HOW MEDICINE WILL HELP HER PT STATED "I JUST WANT TO BE LEFT ALONE". REFUSED BREAKFAST NOT EVEN ANYTHING TO DRINK. VITALS STABLE, PT WAS ABLE TO USE THE BATHROOM WAS ABLE TO VOID UNABLE TO COLLECT SAMPLE FOR UA DUE TO STOOL CONTAMINATION. PT WAS ASKED IF SHE HAS ANY THOUGHTS OF KILLING HERSELF OR WANTING TO , PT STATED "NO". PT ON CONTINUOUS CAMERA MONITORING PT REMAINS IN BED SINCE THE BEGINNING OF THE SHIFT, NS RUNNING AT 75MLS/HR. AWAITING FOR DR ARCOS TO EVALUATE PT TODAY. TM
--- NOTE | 2020-04-21 11:49 | NUR ---
SPOKE TO BURKE (DAUGHTER) AND HIMA BARKLEY (AIRPLANE PILOT HELPER AT [facility]) REGARDING PT'S UPDATE. STILL WAITING FOR DR ARCOS TO SEE AND EVALUATE PT TODAY. PT WORKING WITH PHYSICAL THERAPY AT THIS TIME. STILL REFUSING ANYTHING TO EAT OR DRINK. NO OTHER ISSUES ENCOUNTERED AT THIS TIME. WILL MONITOR
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
--- NOTE | 2020-04-21 16:18 | NUR ---
DR ARCOS SAW PT TODAY RECOMMENDING [facility] FOR PT. PT TRANSPORTED TO MEDICAL FLOOR ROOM 348, REPORT GIVEN TO LESLI BARKLEY. BELONGINGS SENT WITH PT, ACCOMPANIED BY OFFSET PRINTER VIA WHEELCHAIR, HIMA FUNERAL ARRANGEMENT DIRECTOR FROM [facility] MADE AWARE.
--- NOTE | 2020-04-21 16:25 | NUR ---
SHIFT SUMMARY PT TRANSFERRED FROM PCU TO SCU AT 1620. PT ORIENTED TO THE ROOM AND SI CHECK LIST DONE BY RN. PT ON MONITOR. PT HAS FLUIDS RUNNING. VSS; WILL CONTINUE TO MONITOR.
--- NOTE | 2020-04-22 00:41 | NUR ---
PT A/O X4. REMERON AT BEDTIME HAS NOT HELPED PT SLEEP. 0030 PT IS AWAKE AND TOSSING AND TURING IN BED. PT STATED "I'M WIDE AWAKE AND IM ALL MESSED UP". HOSPITALIST DR. TREVIÑO ORDERED 5MG MELATONIN X1.
--- NOTE | 2020-04-22 05:37 | NUR ---
mini shifter summary pt did not recieve much sleep tonight. remeron and melatonin did not help pt to sleep. pt was upset that she couldn't get to sleep. it appears white noise machine helped pt a little pt. lights in pt's has been turned off to aid in sleeping. pt denies any suicide thoughts on my shift. room is camera monitored. pt calls appropriately most of the time. pt has been encouraged to drink po fluids but she drank very little fluids tonight. vss.
[2020-04-22 06:21] LABS: Source, Urine Clean Catch
[2020-04-22 06:29] LABS: Bilirubin, Urine Neg (Neg); Blood, Urine 1+ (Neg); Glucose Qualitative, Urine 1+ (Neg); Ketones, Urine 3+ (Neg); Leukocyte Esterase, Urine 3+ (Neg); Nitrite, Urine Neg (Neg); Protein, Urine 2+ (Neg); Urobilinogen, Urine NORM (Normal)
[2020-04-22 06:31] LABS: Appearance, Urine Clear (Clear); Color, Urine Yellow (P-Yellow)
[2020-04-22 06:37] LABS: White Blood Cells, Urine 25-50 /hpf (0-5)
[2020-04-22 06:38] LABS: Bacteria Mod /hpf; Squamous Epithelial Cells Few /hpf (Few)
--- NOTE | 2020-04-22 14:06 | NUR ---
Patient is lying on her side and sleeping but easily awakens to the sound of her name. Patient immediately tells me that she is in a pit and can't get out. This statement became a theme throughout my visit and the statement that she can't get over the loss of her boyfriend, Usha Rizo. We talk about the grief process and we explore sources of meaning, value and hope. We also spend a great deal of time discussing her Scientologist gaudencio and what part of it may work in dealing with the struggles she currently has. We also talk about what Usha might want her to do and what might honor his legacy. I listen empathically and provide companionship, pastoral vocational counselor, grief support and prayer. Patient did not respond particularly well but I will continue to provide care and connection to patient.
--- NOTE | 2020-04-22 17:54 | NUR ---
SHIFT SUMMARY PT WOULDN'T EAT BREAKFAST BUT DID DRINK GLUCERNA OFFERED. REPORTED DIFFICULTY EATING LUNCH DUE TO HAVING NO TEETH AND DIET WAS CHANGED TO SOFT BITE SIZE. WAS ABLE TO EAT A FEW BLUEBERRIES ON TRAY. ENCOURAGED TO DRINK GLUCERNAS WHEN NOT EATING MEALS. 1 PERSON ASSIST WITH WALKING TO BATHROOM USING A FWW. DENIES PAIN. DAUGHTER CALLED FOR UPDATE ON PT. DR. ARCOS REPORTED PLAN FOR PT TO [facility] ON DISCHARGE.
--- NOTE | 2020-04-23 05:07 | NUR ---
SHIFT SUMMARY NO ACUTE CHANGES DURING THIS SHIFT. DURING SHIFT ASSESSMENT PT WAS TEARFUL AND STATED THAT SHE DIDN'T WANT TO BE HERE AND WAS WORRIED ABOUT HER BELONGINGS. SHE ASKED TO BE LEFT ALONE AND SHORTLY THEREAFTER FELL ASLEEP. PT SLEPT T/O THE NIGHT GETTING UP TO USE THE BATHROOM ONCE SBA W/FWW. PT IS ABLE TO REPOSITION SELF IN BED EASILY. NO APPARENT DISTRESS OR NEEDS AT THIS TIME. WILL CONTINUE TO MONITOR UNTIL REPORT GIVEN TO DAY RN.
--- NOTE | 2020-04-23 19:23 | NUR ---
SHIFT SUMMARY: NOACUTE CHANGES TO REPORT THIS SHIFT. PT ALERT; DEPRESSED-FAILURE TO THRIVE; COOPERATIVE WITH CARE. MODERATE SI PRECUATIONS; 2-MD HOLD; CAMERA ON FOR SAFETY. AWAITING PLACEMENT IN [facility]. REPORT GIVEN TO ONCOMING RN.
--- NOTE | 2020-04-24 05:07 | NUR ---
SHIFT SUMMARY: PT IS ALERT AND ORIENTED WITH MINOR CONFUSION. PT HAS FLAT AFFECT AND IS SLOW TO RESPOND. PT DOES SAY THAT SHE IS DEPRESSED BUT DENIES ANY SUICIDAL IDEATION. PT DENIES PAIN, NAUSEA, VOMITING, AND SOB. PT REFUSES ALL PO MEDICATIONS OVERNIGHT. PT SLEPT MUCH OF THE NIGHT WHEN NOT DISTURBED. NO ACUTE CHANGES OR COMPLICATIONS THIS SHIFT. BED IN LOW POSITION, CALL LIGHT WITHIN REACH. WILL REPORT TO DAY NURSE.
--- NOTE | 2020-04-24 07:22 | NUR ---
Patient was offered a shower this morning and she declined stating that she just wanted to be left alone and did not want to take a shower at all. RN notified. I will try again later.
--- NOTE | 2020-04-24 14:00 | NUR ---
Patient has drank one glass of ice water 240ml and has had two pop deniz so far this shift. I was able to get her to eat some carrots at lunh time as they were cooked and soft. She was cooperative with tyring them, and ate them. RN notified.
--- NOTE | 2020-04-24 17:20 | NUR ---
SHIFT SUMMARY PT SLEEPING AT START OF SHIFT. WOKE EASILY FOR CARE. VERY FLAT AFFECT. DENIED NEEDS MOST OF THE DAY. REFUSED BREAKFAST, BUT LATER REQUESTED POPSICKLES AND ICE WATER, ALSO ATE SOME APPLESAUCE. PT REPORTED TO LATHE SCALPER OPERATOR THAT THE REASON SHE DIDN'T EAT WAS BECAUSE SHE CAN'T CHEW D/T LOSS OF TEETH. PUREE DIET ORDERED FOR DINNER. PT HAS BEEN ON 2 MD HOLD FOR AN INPT PSYCH TX. [facility] CALLED TO REPORT PT MET CRITERIA AND ALSO HAS OPEN BED. KATARZYNA RN AND EXERCISE RIDER NOTIFIED. DR MOORE NOTIFIED. DOCTOR TO DOCTOR CALL COMPLETE. [place] TX ORDERS PLACED. SECURE TRANSPORT ARRANGED. RN ASSIGNED TO PT AND CALLED FOR REPORT. REPORT GIVEN TO RECEIVING RN @ 1710. SECURE TRANSPORT, MARU, TO BE HERE AT 1800 TO TAKE PT. MARU TO CALL [facility] TO CONFIRM TOA. PT UP TO BTHRM WITH SBA USING FWW. NO S/SX OF DISTRESS NOTED OR REPORTED. PT HAS BEEN CO-OP WITH ASSESSMENTS TODAY. REFUSED SHOWER BY RN AND LATHE SCALPER OPERATOR. DECLINED TO GO FOR A WALK WHEN OFFERED BY DR MOORE. [facility]TER WITH UPDATE ON TRANSFER. CALL LT IN REACH. RESTING QUIETLY AT THIS TIME.
--- NOTE | 2020-04-26 01:50 | NUR ---
REVIEWED PT'S CHART FOR CHARTING DOCUMENTATION RE SI PAPERWORK.
== END 2020-04-24 19:15 ==
LOC: ER 13:28 → EOR 13:29 → MEDS 21:50 → PCU 21:50 → EDBEDREQ 22:56 → EDBEDREQSVC 22:56 → EDBEDREQTM 22:56 → PCU 04-21 → MEDS 04-21 16:11
PROVIDERS: Internal Medicine; Physician Assistant; ADMIT Emergency Medicine
DX: F31.9 Bipolar disorder, unspecified (principal); Z20.828 Contact with and (suspected) exposure to other viral communicable diseases; F43.10 Post-traumatic stress disorder, unspecified; E86.0 Dehydration; E03.9 Hypothyroidism, unspecified; F03.90 Unspecified dementia, unspecified severity, without behavioral disturbance, psychotic disturbance, mood disturbance, and anxiety; I25.10 Atherosclerotic heart disease of native coronary artery without angina pectoris; Z79.899 Other long term (current) drug therapy; Z88.5 Allergy status to narcotic agent; Z88.6 Allergy status to analgesic agent; Z88.0 Allergy status to penicillin; Z88.8 Allergy status to other drugs, medicaments and biological substances; Z88.1 Allergy status to other antibiotic agents; R53.1 Weakness; I10 Essential (primary) hypertension; E11.9 Type 2 diabetes mellitus without complications
CPT/HCPCS: 36415; 51798; 80053; 81001; 82947; 84439; 84443; 85025; 87086; 97161; 99285; A9270-GY; G0480; J1650; J7030; U0002

== ENCOUNTER → 2020-06-22 | Outpatient (CLI) | payer OTHER ==
[~2020-06-22] MED LIST changes: +Buspirone HCl5 MG PO; +Lamotrigine25 MG PO; +Mirtazapine15 M1 PO
== END ==
LOC: LAB 15:03 → LAB SHORT 15:03
DX: R94.6 Abnormal results of thyroid function studies (principal)
CPT/HCPCS: 84443

== ENCOUNTER → 2020-07-13 | Outpatient (CLI) | payer OTHER ==
[~2020-07-13] MED LIST changes: +ALMACONE SUSPE355 ML PO; +AMITIZA24 MC1 PO; +BISA10S PR; +CARBOXYMETHYLCE15 ML BOTHEYES; +Cephalexin250 MG/5 M PO; +DULCOLAX400 MG/5 M PO; +ESCI20 PO; +Fleet Enema132 ML PR; +Haldol5 MG/1 ML PO; +LACT PO; +MEMA10 PO; +MIRALAX17 GM PO; +OLAN5 PO; +URSO300 PO; +VITAMIN D310 MC4 PO
[2020-07-13 13:30] LABS: Appearance, Urine Clear (Clear); Bilirubin, Urine Neg (Neg); Blood, Urine Neg (Neg); Color, Urine Yellow (P-Yellow); Glucose Qualitative, Urine Neg (Neg); Ketones, Urine Neg (Neg); Leukocyte Esterase, Urine Neg (Neg); Nitrite, Urine Neg (Neg); Protein, Urine Neg (Neg); Urobilinogen, Urine NORM (Normal); pH, Urine 6.5 (5.0-8.0)
== END | disposition home or self-care (01) ==
LOC: LAB SHORT 12:16 → LAB 12:16
PROVIDERS: Psychiatry & Neurology Psychiatry
DX: N39.0 Urinary tract infection, site not specified (principal)
CPT/HCPCS: 81003

== ENCOUNTER → 2020-08-05 | Outpatient (CLI) | payer OTHER ==
[2020-08-05 16:11] LABS: Source, Urine Clean Catch
[2020-08-05 16:52] LABS: Appearance, Urine Clear (Clear); Bilirubin, Urine Neg (Neg); Blood, Urine 1+ (Neg); Color, Urine Yellow (P-Yellow); Glucose Qualitative, Urine Neg (Neg); Ketones, Urine 4+ (Neg); Leukocyte Esterase, Urine Neg (Neg); Nitrite, Urine Neg (Neg); Protein, Urine 1+ (Neg); Specific Gravity, Urine 1.025 (1.003-1.022); Urobilinogen, Urine NORM (Normal)
[2020-08-05 17:12] LABS: Bacteria Not Seen /hpf; Red Blood Cells, Urine 0-2 /hpf (0-2); Squamous Epithelial Cells Not Seen /hpf (Few); White Blood Cells, Urine Not Seen /hpf (0-5)
== END ==
LOC: LAB 16:09 → LAB SHORT 16:09
PROVIDERS: Nurse Practitioner Family
DX: N39.0 Urinary tract infection, site not specified (principal)
CPT/HCPCS: 81001

== ENCOUNTER → 2020-09-24 | Outpatient (CLI) | payer OTHER ==
[2020-09-24 14:20] LABS: Creatinine, Blood 0.57 mg/dL (0.40-1.00); Glomerular Filtration Rate >60 (60-)
== END ==
LOC: LAB SHORT 07:35 → LAB 07:35 → RAD SHORT 07:35
PROVIDERS: Internal Medicine Gastroenterology
DX: R63.4 Abnormal weight loss (principal)
CPT/HCPCS: 82565

== ENCOUNTER → 2020-10-06 | Outpatient (CLI) | payer OTHER ==
[2020-10-06 19:20] LABS: Source, Urine Clean Catch
[2020-10-06 19:43] LABS: BASOPHILS ABSOLUTE AUTO 0.07 K/mm3 (0.00-0.23); BASOPHILS PERCENT AUTO 2 % (0-2); EOSINOPHILS ABSOLUTE AUTO 0.33 K/mm3 (0.00-0.68); EOSINOPHILS PERCENT AUTO 7 % (0-6); Hematocrit 33.8 % (33.0-51.0); IMMATURE GRAN ABSOLUTE AUTO 0.01 K/mm3 (0.00-0.10); IMMATURE GRAN PERCENT AUTO 0 % (0-1); LYMPHOCYTES ABSOLUTE AUTO 1.27 K/mm3 (0.84-5.20); LYMPHOCYTES PERCENT AUTO 27 % (21-46); MONOCYTES ABSOLUTE AUTO 0.45 K/mm3 (0.16-1.47); MONOCYTES PERCENT AUTO 10 % (4-13); Mean Corpuscular HGB 28.4 pg (26.0-34.0); Mean Corpuscular HGB Conc 32.5 g/dL (31.5-36.5); Mean Corpuscular Volume 87 fL (80-100); Mean Platelet Volume 11.3 fL (9.1-12.4); NEUTROPHILS ABSOLUTE AUTO 2.51 K/mm3 (1.96-9.15); NEUTROPHILS PERCENT AUTO 54 % (41-73); Platelet Count 408 K/mm3 (150-400); RDW Coefficient Variation 15.1 % (11.7-14.2); RDW Standard Deviation 48.5 fL (35.1-46.3); Red Blood Cell Count 3.87 M/mm3 (3.80-5.20); White Blood Cell Count 4.64 K/mm3 (4.00-11.30)
[2020-10-06 19:59] LABS: Appearance, Urine Clear (Clear); Bilirubin, Urine Neg (Neg); Blood, Urine Neg (Neg); Color, Urine Yellow (P-Yellow); Glucose Qualitative, Urine 3+ (Neg); Ketones, Urine Neg (Neg); Leukocyte Esterase, Urine 1+ (Neg); Nitrite, Urine Neg (Neg); Protein, Urine Neg (Neg); Specific Gravity, Urine 1.015 (1.003-1.022); Urobilinogen, Urine NORM (Normal); pH, Urine 6.5 (5.0-8.0)
[2020-10-06 20:04] LABS: Alanine Aminotransfer (ALT/SGP 28 U/L (12-78); Albumin, Blood 3.2 g/dL (3.4-5.0); Albumin/Globulin Ratio 1.1 (0.8-1.8); Alk Phos 92 U/L (50-136); Anion Gap 3 mmol/L (6-16); Aspartate Aminotrans (AST/SGOT 20 U/L (12-37); Bilirubin, Total 0.4 mg/dL (0.1-1.0); Blood Urea Nitrogen 17 mg/dL (8-24); Bun/Creatinine Ratio 26.2 (12.0-20.0); CO2, Blood 27 mmol/L (21-32); Calcium, Blood 8.7 mg/dL (8.5-10.1); Chloride, Blood 112 mmol/L (98-108); Creatinine, Blood 0.65 mg/dL (0.40-1.00); Glomerular Filtration Rate >60 (60-); Glucose, Blood 86 mg/dL (70-99); Potassium, Blood 4.5 mmol/L (3.5-5.5); Sodium, Blood 142 mmol/L (136-145); Total Protein, Blood 6.2 g/dL (6.4-8.2)
[2020-10-06 20:18] LABS: White Blood Cells, Urine 0-2 /hpf (0-5)
[2020-10-06 20:19] LABS: Amorphous Light (0-Heavy); Bacteria Few /hpf; Red Blood Cells, Urine Not Seen /hpf (0-2); Squamous Epithelial Cells Few /hpf (Few)
== END ==
LOC: PLD 08:20 → LAB SHORT 08:20
PROVIDERS: Nurse Practitioner Family
DX: R42 Dizziness and giddiness (principal); R60.0 Localized edema; R63.1 Polydipsia; R73.09 Other abnormal glucose
CPT/HCPCS: 80053; 81001; 83036; 83880; 83935; 85025

== ENCOUNTER 2020-10-27 08:00 | Day surgery (SDC) | payer OTHER ==
[~2020-10-27] VITALS: Ht 160 cm; Wt 54.1 kg
[~2020-10-27 08:00] MED LIST changes: -ALMACONE SUSPE355 ML PO; -BISA10S PR; -CARBOXYMETHYLCE15 ML BOTHEYES; -Cephalexin250 MG/5 M PO; -DULCOLAX400 MG/5 M PO; -ESCI20 PO; -Fleet Enema132 ML PR; -Haldol5 MG/1 ML PO; -LACT PO; -MEMA10 PO; -MIRALAX17 GM PO; -OLAN5 PO; -URSO300 PO; -VITAMIN D310 MC4 PO
--- NOTE | 2020-10-27 08:39 | NUR ---
10/27/20 0839 LUIS ARMANDO SIMMONS ONE ATTEMPT BY SHEY IN RFA VALVE SECOND ATTEMPT IN RFA BY SHEY ANAYA ONE ATTEMPT IN RH BY SHEY VALVE ONE ATTEMPT BY RN IN [facility] VAVLE ONE SUCCESSFUL BY SHEY IN LH PT TOW
--- NOTE | 2020-10-27 14:36 | NUR ---
10/27/20 1436 Latisha Anderson PATIENT TO STEP DOWN VIA GURNEY AT 0942. PATIENT ON ROOM AIR AND O2 SATS WERE 89%. PUT PATIENT IN 3L O2 VIA NASAL CANNULA. 0950 PATIENT 93% O2 SATURATION WITH 3L. SHE IS SPITTING UP COPIOUS AMOUNTS OF THICK MUCOUS. 0954 O2@ 2L AND SATURATION AT 98%. SEE PRINTOUT OF VITAL SIGNS ON THE MONITOR PRINTOUT SHEET. PATIENT WAS ABLE TO MAINTAIN HER OXYGEN LEVEL ON ROOM AIR BETWEEN 96-98%. PATIENT WAS DISCHARGED IN STABLE CONDITION
--- NOTE | 2020-10-27 14:38 | NUR ---
10/27/20 1438 Latisha Anderson LATE ENTRY----DURING PROCEDURE PATIENT O2 SATS DROPPED 82%-88% JAW THRUST WAS PERFORMED AND PATIENT WAS SUCTIONED NUMEROUS TIMES OF THICK CLEAR MUCOUS. PROCEDURE WAS FINISHED AND PATIENT CONTINUED TO HAVE LOW O2 SATS AND PERSISTED IN SPITTING UP COPIOUS AMOUNTS OF THICK MUCOUS. SUCTIONED THROUGHOUT THE WAKE UP PROCESS. PATIENT TRANSFERRED TO SDU IN STABLE CONDITION AT 0942.
[2021-02-24] MEDS ORDERED: ACET325 PO (10:16)
[2021-02-24] MEDS ORDERED: ALMACONE SUSPE355 ML PO (10:16)
[2021-02-24] MEDS ORDERED: BISA10S PR (10:17)
[2021-02-24] MEDS ORDERED: Amitiza8 MCG PO (10:17)
[2021-02-24] MEDS ORDERED: CARBOXYMETHYLCE15 ML BOTHEYES (10:18)
[2021-02-24] MEDS ORDERED: VITAMIN D310 MC4 PO (10:19)
[2021-02-24] MEDS ORDERED: Cephalexin250 MG/5 M PO (10:19)
[2021-02-24] MEDS ORDERED: ESCI20 PO (10:22)
[2021-02-24] MEDS ORDERED: LACT PO (10:28)
[2021-02-24] MEDS ORDERED: Haldol5 MG/1 ML PO (10:28)
[2021-02-24] MEDS ORDERED: LORA.5 PO (10:29)
[2021-02-24] MEDS ORDERED: MELATONIN5 M1 PO (10:30)
[2021-02-24] MEDS ORDERED: MEMA10 PO (10:30)
[2021-02-24] MEDS ORDERED: DULCOLAX400 MG/5 M PO (10:30)
[2021-02-24] MEDS ORDERED: MIRALAX17 GM PO (10:31)
[2021-02-24] MEDS ORDERED: OLAN5 PO (10:31)
[2021-02-24] MEDS ORDERED: URSO300 PO (10:33)
[2021-02-24] MEDS ORDERED: Fleet Enema132 ML PR (10:33)
== END 2020-10-27 10:11 | disposition home or self-care (01) ==
LOC: ORSCSDS 08:00
PROVIDERS: Internal Medicine Gastroenterology
PROC: 0DB68ZX Excision of Stomach, Via Natural or Artificial Opening Endoscopic, Diagnostic (ICD-10-PCS; principal; 2020-10-27 09:00)
DX: R93.3 Abnormal findings on diagnostic imaging of other parts of digestive tract (principal); K56.1 Intussusception; Z68.21 Body mass index [BMI] 21.0-21.9, adult; K59.09 Other constipation; K21.9 Gastro-esophageal reflux disease without esophagitis; Z79.899 Other long term (current) drug therapy
CPT/HCPCS: 88305; 88342; J2405; J2704; J7120

== ENCOUNTER → 2020-12-07 | Outpatient (CLI) | payer OTHER ==
[2020-12-07 19:07] LABS: Source, Urine Clean Catch
[2020-12-07 19:32] LABS: Appearance, Urine Clear (Clear); Bilirubin, Urine Neg (Neg); Blood, Urine Neg (Neg); Color, Urine Yellow (P-Yellow); Glucose Qualitative, Urine Neg (Neg); Ketones, Urine Neg (Neg); Leukocyte Esterase, Urine Neg (Neg); Nitrite, Urine Neg (Neg); Protein, Urine Neg (Neg); Specific Gravity, Urine 1.015 (1.003-1.022); Urobilinogen, Urine NORM (Normal)
== END | disposition home or self-care (01) ==
LOC: LAB SHORT 19:04
PROVIDERS: Nurse Practitioner Family
DX: N39.0 Urinary tract infection, site not specified (principal)
CPT/HCPCS: 81003

== ENCOUNTER 2021-03-01 05:53 | Day surgery (SDC) | payer OTHER ==
[~2021-03-01] VITALS: Ht 160 cm; Wt 56.2 kg
[~2021-03-01 05:53] MED LIST changes: +ALMACONE SUSPE355 ML PO; +BISA10S PR; +CARBOXYMETHYLCE15 ML BOTHEYES; +Cephalexin250 MG/5 M PO; +DULCOLAX400 MG/5 M PO; +ESCI20 PO; +Fleet Enema132 ML PR; +Haldol5 MG/1 ML PO; +LACT PO; +MEMA10 PO; +MIRALAX17 GM PO; +OLAN5 PO; +URSO300 PO; +VITAMIN D310 MC4 PO
[2021-03-01] MEDS ORDERED: URSO300 PO (07:02)
--- NOTE | 2021-03-01 07:16 | NUR ---
PT TO SDS VIA WC, ESCORTED BY CAREGIVER TO DOOR. NEEDED INFO OBTAINED FROM HERE. PT REPORTS NPO SINCE MIDNIGHT. History, Chart, Medications and Allergies reviewed before start of procedure. Lungs clear T/O to Auscultation. CHEM BG 99. RING IN PLACE ON R RING FINGER, TAPED AND REFUSAL TO REMOVE JEWELRY FORM SIGNED. GLASSES TAKEN TO PACU. +VOID.
--- NOTE | 2021-03-01 10:44 | NUR ---
Patient up to Ambulate STAND BY ASSIST. Gait steadY. Discharge instructions reviewed with patient AND RN AT FACILITY VIA TELEPHONE.Patient verbalizes understanding. Copy given to patient to take home. PT WILL BE DISCHARGED via wheelchair TO [facility] FOR RIDE HOME TO FACILITY
== END 2021-03-01 11:03 | disposition home or self-care (01) ==
LOC: ORSCMMR 05:53 → ORD 07:30 → ORSCMMR 07:30
PROVIDERS: Surgery
PROC: 0HBAXZZ Excision of Inguinal Skin, External Approach (ICD-10-PCS; principal; 2021-03-01 07:30)
PROC: 0YU50JZ Supplement Right Inguinal Region with Synthetic Substitute, Open Approach (ICD-10-PCS; principal; 2021-03-01 07:30)
PROC: 0HBAXZX Excision of Inguinal Skin, External Approach, Diagnostic (ICD-10-PCS; principal; 2021-03-01 07:30)
DX: K40.90 Unilateral inguinal hernia, without obstruction or gangrene, not specified as recurrent (principal); L82.1 Other seborrheic keratosis; D22.5 Melanocytic nevi of trunk; E11.9 Type 2 diabetes mellitus without complications; E03.9 Hypothyroidism, unspecified; K21.9 Gastro-esophageal reflux disease without esophagitis; Z79.899 Other long term (current) drug therapy
CPT/HCPCS: 82947; 88305; 93005; 93010; A9270; C1781; J1100; J2370; J2405; J2704; J3010; J7120

== ENCOUNTER → 2021-06-08 | Outpatient (CLI) | payer OTHER ==
[2021-06-08 12:13] LABS: BASOPHILS ABSOLUTE AUTO 0.08 K/mm3 (0.00-0.23); BASOPHILS PERCENT AUTO 2 % (0-2); EOSINOPHILS ABSOLUTE AUTO 0.43 K/mm3 (0.00-0.68); EOSINOPHILS PERCENT AUTO 10 % (0-6); Hematocrit 37.2 % (33.0-51.0); Hemoglobin 11.9 g/dL (11.5-16.0); IMMATURE GRAN PERCENT AUTO 0 % (0-1); LYMPHOCYTES ABSOLUTE AUTO 1.64 K/mm3 (0.84-5.20); LYMPHOCYTES PERCENT AUTO 37 % (21-46); MONOCYTES ABSOLUTE AUTO 0.39 K/mm3 (0.16-1.47); MONOCYTES PERCENT AUTO 9 % (4-13); Mean Corpuscular HGB 26.8 pg (26.0-34.0); Mean Corpuscular Volume 84 fL (80-100); Mean Platelet Volume 11.2 fL (9.1-12.4); NEUTROPHILS ABSOLUTE AUTO 1.89 K/mm3 (1.96-9.15); NEUTROPHILS PERCENT AUTO 43 % (41-73); Platelet Count 404 K/mm3 (150-400); RDW Coefficient Variation 14.1 % (11.7-14.2); RDW Standard Deviation 43.4 fL (35.1-46.3); Red Blood Cell Count 4.44 M/mm3 (3.80-5.20); White Blood Cell Count 4.43 K/mm3 (4.00-11.30)
[2021-06-08 12:23] LABS: Alanine Aminotransfer (ALT/SGP 19 U/L (12-78); Albumin, Blood 3.5 g/dL (3.4-5.0); Albumin/Globulin Ratio 0.9 (0.8-1.8); Alk Phos 104 U/L (50-136); Anion Gap 5 mmol/L (6-16); Aspartate Aminotrans (AST/SGOT 17 U/L (12-37); Bilirubin, Total 0.2 mg/dL (0.1-1.0); Blood Urea Nitrogen 18 mg/dL (8-24); Bun/Creatinine Ratio 23.4 (12.0-20.0); CO2, Blood 27 mmol/L (21-32); Calcium, Blood 9.3 mg/dL (8.5-10.1); Chloride, Blood 109 mmol/L (98-108); Creatinine, Blood 0.77 mg/dL (0.40-1.00); Globulin, Blood 3.9 g/dL (2.2-4.0); Glomerular Filtration Rate >60 (60-); Glucose, Blood 93 mg/dL (70-99); Potassium, Blood 4.4 mmol/L (3.5-5.5); Sodium, Blood 141 mmol/L (136-145); Total Protein, Blood 7.4 g/dL (6.4-8.2)
[2021-06-08 12:28] LABS: Free Thyroxine 0.83 ng/dL (0.70-1.60)
[2021-06-08 12:33] LABS: Thyroid Stimulating Hormone 4.63 uIU/mL (0.360-4.800)
== END | disposition home or self-care (01) ==
LOC: LAB SHORT 09:06
PROVIDERS: Nurse Practitioner Family
DX: E03.9 Hypothyroidism, unspecified (principal)
CPT/HCPCS: 80053; 84439; 84443; 85025

== ENCOUNTER 2022-01-04 16:52 | Observation (INO) | payer OTHER ==
[~2022-01-04] VITALS: Ht 160 cm; Wt 57.6 kg
[~2022-01-04 16:52] MED LIST changes: +CENTRUM SILVER1 EAC2 PO; +MYRBETRIQ25 MG PO
[2022-01-04 17:31] LABS: BASOPHILS ABSOLUTE AUTO 0.05 K/mm3 (0.00-0.23); BASOPHILS PERCENT AUTO 1 % (0-2); EOSINOPHILS ABSOLUTE AUTO 0.22 K/mm3 (0.00-0.68); EOSINOPHILS PERCENT AUTO 3 % (0-6); Hematocrit 36.4 % (33.0-51.0); Hemoglobin 11.8 g/dL (11.5-16.0); IMMATURE GRAN ABSOLUTE AUTO 0.01 K/mm3 (0.00-0.10); IMMATURE GRAN PERCENT AUTO 0 % (0-1); LYMPHOCYTES PERCENT AUTO 33 % (21-46); MONOCYTES PERCENT AUTO 8 % (4-13); Mean Corpuscular HGB 26.8 pg (26.0-34.0); Mean Corpuscular HGB Conc 32.4 g/dL (31.5-36.5); Mean Corpuscular Volume 83 fL (80-100); Mean Platelet Volume 9.9 fL (9.1-12.4); NEUTROPHILS PERCENT AUTO 55 % (41-73); Platelet Count 348 K/mm3 (150-400); RDW Coefficient Variation 16.1 % (11.7-14.2); RDW Standard Deviation 48.7 fL (35.1-46.3); Red Blood Cell Count 4.41 M/mm3 (3.80-5.20); White Blood Cell Count 6.58 K/mm3 (4.00-11.30)
[2022-01-04 17:37] LABS: Source, Urine Clean Catch
[2022-01-04 17:51] LABS: Appearance, Urine Clear (Clear); Bilirubin, Urine Neg (Neg); Blood, Urine 1+ (Neg); Glucose Qualitative, Urine Neg (Neg); Ketones, Urine Neg (Neg); Leukocyte Esterase, Urine 1+ (Neg); Nitrite, Urine Neg (Neg); Protein, Urine Neg (Neg); Specific Gravity, Urine 1.005 (1.003-1.022); Urobilinogen, Urine NORM (Normal)
[2022-01-04 17:54] LABS: Salicylate <1.7 mg/dL (2.8-20.0)
[2022-01-04 17:56] LABS: Acetaminophen, Random <2.0 ug/mL (10.0-30.0); Alanine Aminotransfer (ALT/SGP 21 U/L (12-78); Albumin, Blood 3.7 g/dL (3.4-5.0); Alk Phos 99 U/L (50-136); Anion Gap 2 mmol/L (6-16); Aspartate Aminotrans (AST/SGOT 14 U/L (12-37); Bilirubin, Total 0.3 mg/dL (0.1-1.0); Blood Urea Nitrogen 12 mg/dL (8-24); CO2, Blood 29 mmol/L (21-32); Calcium, Blood 9.3 mg/dL (8.5-10.1); Chloride, Blood 108 mmol/L (98-108); Creatinine, Blood 0.63 mg/dL (0.40-1.00); Globulin, Blood 3.6 g/dL (2.2-4.0); Glomerular Filtration Rate 90 (60-); Glucose, Blood 100 mg/dL (70-99); Potassium, Blood 4.6 mmol/L (3.5-5.5); Sodium, Blood 139 mmol/L (136-145); Total Protein, Blood 7.3 g/dL (6.4-8.2)
[2022-01-04 18:06] LABS: Color, Urine Pale Yellow (P-Yellow)
[2022-01-04 18:07] LABS: Bacteria Mod /hpf; Red Blood Cells, Urine Rare /hpf (0-2); Squamous Epithelial Cells Rare /hpf (Few); White Blood Cells, Urine Rare /hpf (0-5)
[2022-01-04 18:08] LABS: U Amphetamine Screen Not Detected; U Barbituate Screen Not Detected; U Benzodiazapine Screen DETECTED; U Buprenorphine Screen Not Detected; U Cannabinoids Screen Not Detected; U Cocaine Screen Not Detected; U Methadone Screen Not Detected; U Methamphetamine Screen Not Detected; U Opiates Screen Not Detected; U Oxycodone Screen Not Detected; U Phencyclidine Screen Not Detected; U Propoxyphene Screen Not Detected
[2022-01-04 19:02] LABS: Influenza A, PCR NEGATIVE (NEGATIVE); Influenza B, PCR NEGATIVE (NEGATIVE); Resp Syncytial Virus, PCR NEGATIVE (NEGATIVE); SARS-Cov-2 (COVID-19) PCR, MMC NEGATIVE (NEGATIVE)
== END 2022-01-04 21:47 | disposition home or self-care (01) ==
LOC: ER 16:52 → EOR 16:53
PROVIDERS: ADMIT Emergency Medicine
DX: F32.A Depression, unspecified (principal); R45.851 Suicidal ideations; F41.9 Anxiety disorder, unspecified; E03.9 Hypothyroidism, unspecified; I10 Essential (primary) hypertension; Z90.49 Acquired absence of other specified parts of digestive tract; Z88.0 Allergy status to penicillin; Z88.2 Allergy status to sulfonamides; Z88.6 Allergy status to analgesic agent; Z88.1 Allergy status to other antibiotic agents; Z88.8 Allergy status to other drugs, medicaments and biological substances; Z88.5 Allergy status to narcotic agent; Z20.822 Contact with and (suspected) exposure to COVID-19
CPT/HCPCS: 0241U; 80053; 81001; 81025; 85025; A9270; G0480

== ENCOUNTER 2022-03-28 08:15 | Day surgery (SDC) | payer OTHER ==
[~2022-03-28] VITALS: Ht 162.6 cm; Wt 59.1 kg
[2022-03-28] MEDS ORDERED: ABILIFY MYCITE2 M2 PO (08:57)
== END 2022-03-28 11:09 | disposition home or self-care (01) ==
LOC: ORSCSDS 08:15
PROVIDERS: Ophthalmology
PROC: 08RJ3JZ Replacement of Right Lens with Synthetic Substitute, Percutaneous Approach (ICD-10-PCS; principal; 2022-03-28 09:30)
DX: H25.11 Age-related nuclear cataract, right eye (principal); E11.9 Type 2 diabetes mellitus without complications; E03.9 Hypothyroidism, unspecified; F31.9 Bipolar disorder, unspecified; K21.9 Gastro-esophageal reflux disease without esophagitis; H35.30 Unspecified macular degeneration; Z86.711 Personal history of pulmonary embolism; Z79.899 Other long term (current) drug therapy
CPT/HCPCS: 82947; J2001; J2250; J3010; J3301; J7040; V2632

== ENCOUNTER 2023-02-18 12:39 | Emergency (ER) | payer OTHER ==
[~2023-02-18] VITALS: Ht 160 cm; Wt 61.7 kg
[~2023-02-18 12:39] MED LIST changes: +ABILIFY MYCITE2 M2 PO; +PRESERVISION A1 EAC2 PO
[2023-02-18 14:00] VITALS: BP 116/76
== END 2023-02-18 14:04 | disposition home or self-care (01) ==
LOC: ER 12:39
DX: K59.00 Constipation, unspecified (principal); R42 Dizziness and giddiness; T47.3X5A Adverse effect of saline and osmotic laxatives, initial encounter; X58.XXXA Exposure to other specified factors, initial encounter; I10 Essential (primary) hypertension; E11.9 Type 2 diabetes mellitus without complications; E03.9 Hypothyroidism, unspecified; Z86.59 Personal history of other mental and behavioral disorders; Z88.0 Allergy status to penicillin; Z88.2 Allergy status to sulfonamides; Z88.1 Allergy status to other antibiotic agents; Z88.6 Allergy status to analgesic agent; Z88.8 Allergy status to other drugs, medicaments and biological substances; Z79.890 Hormone replacement therapy; Z79.899 Other long term (current) drug therapy
CPT/HCPCS: 99283; A9270

== ENCOUNTER → 2023-02-28 | Outpatient (CLI) | payer OTHER ==
[2023-02-28 17:12] LABS: BASOPHILS ABSOLUTE AUTO 0.04 K/mm3 (0.00-0.23); BASOPHILS PERCENT AUTO 0 % (0-2); EOSINOPHILS ABSOLUTE AUTO 0.05 K/mm3 (0.00-0.68); EOSINOPHILS PERCENT AUTO 1 % (0-6); Hematocrit 37.1 % (33.0-51.0); Hemoglobin 12.2 g/dL (11.5-16.0); IMMATURE GRAN ABSOLUTE AUTO 0.02 K/mm3 (0.00-0.10); IMMATURE GRAN PERCENT AUTO 0 % (0-1); LYMPHOCYTES ABSOLUTE AUTO 1.01 K/mm3 (0.84-5.20); LYMPHOCYTES PERCENT AUTO 11 % (21-46); MONOCYTES ABSOLUTE AUTO 0.61 K/mm3 (0.16-1.47); MONOCYTES PERCENT AUTO 6 % (4-13); Mean Corpuscular HGB Conc 32.9 g/dL (31.5-36.5); Mean Corpuscular Volume 88 fL (80-100); Mean Platelet Volume 12.1 fL (9.1-12.4); NEUTROPHILS ABSOLUTE AUTO 7.86 K/mm3 (1.96-9.15); NEUTROPHILS PERCENT AUTO 82 % (41-73); Platelet Count 224 K/mm3 (150-400); RDW Coefficient Variation 14.5 % (11.7-14.2); RDW Standard Deviation 46.6 fL (35.1-46.3); White Blood Cell Count 9.59 K/mm3 (4.00-11.30)
[2023-02-28 17:49] LABS: Albumin, Blood 3.7 g/dL (3.4-5.0); Bilirubin, Total 0.3 mg/dL (0.1-1.0); Bun/Creatinine Ratio 11.8 (12.0-20.0); Calcium, Blood 8.8 mg/dL (8.5-10.1); Creatinine, Blood 0.68 mg/dL (0.40-1.00); Globulin, Blood 3.8 g/dL (2.2-4.0); Potassium, Blood 5.1 mmol/L (3.5-5.5); Thyroid Stimulating Hormone 2.12 uIU/mL (0.360-4.800); Total Protein, Blood 7.5 g/dL (6.4-8.2)
== END | disposition home or self-care (01) ==
LOC: LAB 16:06 → LAB SHORT 16:06
PROVIDERS: Family Medicine
DX: E03.9 Hypothyroidism, unspecified (principal); R55 Syncope and collapse
CPT/HCPCS: 80053; 84443; 85025

== ENCOUNTER 2023-07-30 10:11 | Emergency (ER) | payer OTHER ==
[~2023-07-30] VITALS: Ht 160 cm; Wt 68.0 kg
[~2023-07-30 10:11] MED LIST changes: -ONDA4ODT MM
[2023-07-30 10:51] LABS: BASOPHILS ABSOLUTE AUTO 0.07 K/mm3 (0.00-0.23); BASOPHILS PERCENT AUTO 1 % (0-2); EOSINOPHILS ABSOLUTE AUTO 0.08 K/mm3 (0.00-0.68); EOSINOPHILS PERCENT AUTO 1 % (0-6); Hematocrit 33.8 % (33.0-51.0); Hemoglobin 11.2 g/dL (11.5-16.0); IMMATURE GRAN ABSOLUTE AUTO 0.01 K/mm3 (0.00-0.10); IMMATURE GRAN PERCENT AUTO 0 % (0-1); LYMPHOCYTES ABSOLUTE AUTO 0.78 K/mm3 (0.84-5.20); LYMPHOCYTES PERCENT AUTO 10 % (21-46); MONOCYTES ABSOLUTE AUTO 0.37 K/mm3 (0.16-1.47); MONOCYTES PERCENT AUTO 5 % (4-13); Mean Corpuscular HGB 28.2 pg (26.0-34.0); Mean Corpuscular HGB Conc 33.1 g/dL (31.5-36.5); Mean Corpuscular Volume 85 fL (80-100); Mean Platelet Volume 9.8 fL (9.1-12.4); NEUTROPHILS ABSOLUTE AUTO 6.33 K/mm3 (1.96-9.15); NEUTROPHILS PERCENT AUTO 83 % (41-73); Platelet Count 364 K/mm3 (150-400); RDW Coefficient Variation 15.6 % (11.7-14.2); RDW Standard Deviation 48.4 fL (35.1-46.3); Red Blood Cell Count 3.97 M/mm3 (3.80-5.20); White Blood Cell Count 7.64 K/mm3 (4.00-11.30)
[2023-07-30 11:12] LABS: Albumin, Blood 3.4 g/dL (3.4-5.0); Bilirubin, Total 0.3 mg/dL (0.1-1.0); Bun/Creatinine Ratio 13.7 (12.0-20.0); Calcium, Blood 8.3 mg/dL (8.5-10.1); Creatinine, Blood 0.66 mg/dL (0.40-1.00); Globulin, Blood 3.5 g/dL (2.2-4.0); Magnesium, Blood 2.4 mg/dL (1.6-2.4); Potassium, Blood 4.7 mmol/L (3.5-5.5); Total Protein, Blood 6.9 g/dL (6.4-8.2)
[2023-07-30] MEDS ORDERED: ONDA4ODT MM (13:54)
[2023-07-30 15:26] VITALS: BP 120/67
== END 2023-07-30 15:41 | disposition home or self-care (01) ==
LOC: ER 10:11
PROVIDERS: Student in an Organized Health Care Education/Training Program
DX: R11.2 Nausea with vomiting, unspecified (principal); R07.89 Other chest pain; I10 Essential (primary) hypertension; E11.9 Type 2 diabetes mellitus without complications; E03.9 Hypothyroidism, unspecified; F32.A Depression, unspecified; F41.9 Anxiety disorder, unspecified; Z79.899 Other long term (current) drug therapy; Z88.0 Allergy status to penicillin; Z88.2 Allergy status to sulfonamides; Z88.1 Allergy status to other antibiotic agents; Z88.8 Allergy status to other drugs, medicaments and biological substances; Z88.5 Allergy status to narcotic agent; Z91.014 Allergy to mammalian meats
CPT/HCPCS: 71046; 80053; 83690; 83735; 83880; 84484; 85025; 93005; 93010; 96374; 99285-25; J2405; J7030

== ENCOUNTER → 2023-07-30 | Outpatient (CLI) | payer OTHER ==
[~2023-07-30] MED LIST changes: +ONDA4ODT MM
[2023-07-31 14:51] LABS: Source, Urine Clean Catch
[2023-07-31 15:34] LABS: Appearance, Urine Clear (Clear); Bilirubin, Urine Neg (Neg); Blood, Urine Neg (Neg); Color, Urine Yellow (P-Yellow); Glucose Qualitative, Urine Neg (Neg); Ketones, Urine Neg (Neg); Leukocyte Esterase, Urine Neg (Neg); Nitrite, Urine Neg (Neg); Protein, Urine Neg (Neg); Urobilinogen, Urine NORM (Normal)
== END ==
LOC: LAB 19:20 → LAB SHORT 19:20
PROVIDERS: Family Medicine
DX: N39.0 Urinary tract infection, site not specified (principal)
CPT/HCPCS: 81003

== ENCOUNTER → 2024-04-10 | Outpatient (CLI) | payer OTHER ==
[~2024-04-10] MED LIST changes: +ONDA4ODT MM
[2024-04-10 16:14] LABS: BASOPHILS ABSOLUTE AUTO 0.06 K/mm3 (0.00-0.23); BASOPHILS PERCENT AUTO 1 % (0-2); EOSINOPHILS ABSOLUTE AUTO 0.29 K/mm3 (0.00-0.68); EOSINOPHILS PERCENT AUTO 7 % (0-6); Hematocrit 37.9 % (33.0-51.0); Hemoglobin 12.4 g/dL (11.5-16.0); IMMATURE GRAN ABSOLUTE AUTO 0.01 K/mm3 (0.00-0.10); IMMATURE GRAN PERCENT AUTO 0 % (0-1); LYMPHOCYTES ABSOLUTE AUTO 1.01 K/mm3 (0.84-5.20); LYMPHOCYTES PERCENT AUTO 23 % (21-46); MONOCYTES ABSOLUTE AUTO 0.46 K/mm3 (0.16-1.47); MONOCYTES PERCENT AUTO 11 % (4-13); Mean Corpuscular HGB 29.5 pg (26.0-34.0); Mean Corpuscular HGB Conc 32.7 g/dL (31.5-36.5); Mean Corpuscular Volume 90 fL (80-100); Mean Platelet Volume 10.6 fL (9.1-12.4); NEUTROPHILS ABSOLUTE AUTO 2.51 K/mm3 (1.96-9.15); NEUTROPHILS PERCENT AUTO 58 % (41-73); Platelet Count 391 K/mm3 (150-400); RDW Coefficient Variation 13.6 % (11.7-14.2); RDW Standard Deviation 45.1 fL (35.1-46.3); Red Blood Cell Count 4.21 M/mm3 (3.80-5.20); White Blood Cell Count 4.34 K/mm3 (4.00-11.30)
[2024-04-10 16:16] LABS: Albumin, Blood 3.7 g/dL (3.4-5.0); Albumin/Globulin Ratio 0.9 (0.8-1.8); Bilirubin, Total 0.2 mg/dL (0.1-1.0); Calcium, Blood 9.1 mg/dL (8.5-10.1); Creatinine, Blood 0.71 mg/dL (0.40-1.00); Globulin, Blood 4.1 g/dL (2.2-4.0); Potassium, Blood 4.4 mmol/L (3.5-5.5); Total Protein, Blood 7.8 g/dL (6.4-8.2)
== END ==
LOC: LAB SHORT 15:02 → LAB 15:02
PROVIDERS: Family Medicine
DX: D75.839 Thrombocytosis, unspecified (principal); E11.9 Type 2 diabetes mellitus without complications
CPT/HCPCS: 80053; 85025